=== PATIENT | male | born 1940 | race Caucasian/White ===

== ENCOUNTER → 2017-11-04 14:28 | Outpatient (CLI) | payer MEDICARE, SELFPAY ==
[2017-11-04 14:58] LABS: BUN Creatinine Ratio 23.6 (6-22); Calcium 8.8 mg/dL (8.4-10.2); Estimated Glomerular Filt Rate > 60.0 mL/min (>60); Glucose 104 mg/dL (80-110); HEMOLYSIS 32 (0-50); Potassium 4.5 mmol/L (3.4-5.1); Sodium 140 mmol/L (137-145)
== END ==
PROVIDERS: PCP Family Medicine; Visit Provider Internal Medicine Cardiovascular Disease
DX: I48.2 Chronic atrial fibrillation (principal)
CPT/HCPCS: 36415; 80048

== ENCOUNTER 2018-10-06 10:13 | Emergency (ER) | payer MEDICARE, SELFPAY ==
[2018-10-06] VITALS (10 sets, daily range): BP systolic 89–178; BP diastolic 51–103; PULSE 56–93; RESP 13–18; TEMP 36.5; O2SAT 92–98
--- NOTE | 2018-10-06 10:31 | ED.CHESTPAIN ---
HPI - Chest Pain General Chief Complaint: Chest Pain Stated Complaint: CHEST PAIN X7 DAYS Time Seen by Provider: 10/06/18 10:29 Source: patient and old records reviewed Mode of arrival: ambulatory Limitations: no limitations History of Present Illness HPI narrative: this is a 78-year-old male comes to the emergency department with complaint of chest pain. Patient states symptoms have been going on for 7-10 days. He states that he had some diarrhea for couple days after eating food and then started to notice that he was having a little bit of chest pain and pressure. Sort of the right sternal border region. He states that walking or exerting himself makes it worse. It sort of comes and goes but can't happen intermittently without any clear exacerbating factors. He denies any shortness of breath, denies any syncope. Denies any sweating or clamminess. He does feel anxious when this occurs. He denies any nausea no vomiting. He states he does not have any currently. He states he did this morning for several hours and resolved just prior to arrival. Last night he had quite a bit of heartburn and some pressure. Also felt a little bit discomfort into his shoulders. Patient states he takes medicine for hypertension, dyslipidemia and atrial fibrillation. He is on Xarelto. He has never had a heart catheterization. He follows with Dr. Osuna he has had some dental surgery and tonsils removed. He denies tobacco use, drinks [address] Trinidad is his PCP Related Data Home Medications Medication Instructions Recorded Confirmed potassium chloride 40 meq PO BID #0 10/21/16 10/06/18 garlic 1,000 mg capsule 1,000 mg PO QPC 03/21/18 10/06/18 melatonin 5 mg capsule 5 mg PO BEDTIME cap 03/21/18 10/06/18 rivaroxaban 20 mg tablet 20 mg PO QPM 03/21/18 10/06/18 Respironics DreamStation CPAP #1 ea 08/09/18 10/06/18 PreserVision AREDS 1 cap PO BID 10/06/18 10/06/18 amlodipine 5 mg PO DAILY 10/06/18 10/06/18 atorvastatin [Lipitor] 20 mg PO BEDTIME 10/06/18 10/06/18 clobetasol 1 applic TOPICAL DIRECTED 10/06/18 10/06/18 finasteride 5 mg PO DAILY 10/06/18 10/06/18 losartan [Cozaar] 100 mg PO DAILY 10/06/18 10/06/18 metoprolol succinate 100 mg PO DAILY 10/06/18 10/06/18 metronidazole 1 applic TOPICAL BEDTIME 10/06/18 10/06/18 multivitamin 1 tab PO DAILY 10/06/18 10/06/18 tamsulosin [Flomax] 0.4 mg PO QPM 10/06/18 10/06/18 Allergies Allergy/AdvReac Type Severity Reaction Status Date / Time Penicillins [PENICILLINS] Allergy Severe RASH Verified 08/15/18 18:16 Sulfa (Sulfonamide Allergy Intermediate HEART Verified 08/15/18 18:16 Antibiotics) MURMUR [SULFA (SULFONAMIDE ANTIBIOTICS)] Review of Systems Review of Systems ROS Unobtainable: All systems reviewed & are unremarkable except as noted in HPI and below Constitutional Denies chills, Denies fever(s), Denies lethargy and Denies weakness Cardiovascular Reports chest pain, Reports chest pain at rest, Reports chest pain with activity, Denies diaphoresis, Denies syncope, Denies rapid heart rate, Denies edema, Denies irregular heart rhythm, Denies lightheadedness, Reports radiating jaw, neck or arm pain, Denies palpitations, Denies dyspnea, Denies dyspnea on exertion and Denies orthopnea Respiratory Denies change in phlegm color, Denies chest congestion, Denies cough, Denies dyspnea, Denies dyspnea on exertion and Denies wheezing Gastrointestinal Gastrointestinal: Denies abdominal pain, Denies change in bowel habits, Denies diarrhea (Has resolved), Denies nausea and Denies vomiting Musculoskeletal Denies back pain Neurologic Denies syncope and Denies weakness Endocrine Denies palpitations Allergic/Immunologic Denies wheezing [facility] Medical History Obstructive sleep apnea of adult (Chronic) Primary insomnia (Chronic) Atrial fibrillation with controlled ventricular rate (Chronic) BPH (benign prostatic hyperplasia) (Chronic) Elevated PSA (Chronic) Hyperlipidemia (Chronic) Hypertension (Chronic) Fractures (Resolved) Shoulder pain (Resolved ~2009) Surgical History Hx of surgical procedure (Resolved ~2008) History of tonsillectomy Family History Father Prostate cancer Grandfather CVA (cerebral vascular accident) Grandmother CVA (cerebral vascular accident) Mother CVA (cerebral vascular accident) Grandfather Congestive heart failure Grandmother Bleeding ulcer Social History (Updated 08/09/18 @ 14:07 by ALFREDO Aldridge) marital status: details: keenan Rushing lives in [place] household members: spouse lives independently: Yes caregiver/support person: Yes (he is the 24-hour/day caregiver for his ) Smoking Status: Never smoker alcohol intake: current substance use type: does not use Family History Father Prostate cancer Grandfather CVA (cerebral vascular accident) Grandmother CVA (cerebral vascular accident) Mother CVA (cerebral vascular accident) Grandfather Congestive heart failure Grandmother Bleeding ulcer Social History marital status: details: to Kristan lives in [place] household members: spouse lives independently: Yes caregiver/support person: Yes (he is the 24-hour/day caregiver for his ) Smoking Status: Never smoker alcohol intake: current substance use type: does not use Exam Narrative Exam Narrative: GENERAL: Alert and oriented x three, HEENT: Head normocephalic, atraumatic, EOMI, pupils reactive, face symmetric, moist mucous membranes NECK: Supple, full range of motion CARDIOVASCULAR: Regular rate and rhythm without murmurs, rubs or gallops. RESPIRATORY: Breath sounds equal bilaterally, no wheezes rales or rhonchi. ABDOMEN: Soft, nontender. Normoactive bowel sounds all 4 quadrants. No guarding or rebound, rigidity, no mass : No CVA tenderness EXTREMITIES: Normal range of motion, no clubbing or edema. Neurovascularly intact NEUROLOGICAL: Cranial nerves II through XII grossly intact. Moving all extremities SKIN: Warm, dry, no petechiae, no rashes or lesions. Initial Vital Signs Initial Vital Signs: Vital Signs Temperature 97.7 F 10/06/18 10:15 Pulse Rate 93 H 10/06/18 10:15 Respiratory Rate 18 10/06/18 10:15 Blood Pressure 178/103 H 10/06/18 10:15 Pulse Oximetry 98 10/06/18 10:15 Course Orders Ordered: Discontinued Medications Aspirin (Aspirin Chew) 324 mg PO NOW ONE Stop: 10/06/18 10:30 Last Admin: 10/06/18 10:48 Dose: 324 mg Heparin Sodium (Porcine) (Heparin) 4,000 unit IV NOW ONE Stop: 10/06/18 11:28 Last Admin: 10/06/18 13:12 Dose: Not Given Sodium Chloride (Normal Saline 0.9%) 1,000 mls @ 150 mls/hr IV CONT ESTEBAN Last Infusion: 10/06/18 14:23 Dose: 150 mls/hr Admin: 10/06/18 10:48 Dose: 150 mls/hr Heparin Sodium/Dextrose (Heparin Drip) 25,000 unit in 500 mls @ 20.14 mls/hr IV CONT ESTEBAN; Protocol Last Admin: 10/06/18 13:12 Dose: Not Given Nitroglycerin (Nitro-Bid) 1 inch TOP NOW ONE Stop: 10/06/18 10:41 Last Admin: 10/06/18 10:47 Dose: 1 inch Vital Signs - 8 hr 10/06/18 12:43 10/06/18 13:00 10/06/18 13:35 Pulse Rate 88 85 Respiratory Rate 16 18 Blood Pressure [Right Arm] 93/52 L 157/79 H 154/74 H Pulse Oximetry 94 10/06/18 14:08 Pulse Rate 85 Respiratory Rate 18 Blood Pressure [Right Arm] 158/85 H Pulse Oximetry 95 MDM - Chest Pain Lab Data Attestation: I reviewed the patient's lab results. Result diagrams: 10/06/18 10:30 10/06/18 10:30 Lab Results 10/06/18 10/06/18 10/06/18 Range/Units 10:30 10:30 10:30 WBC 8.7 (4.5-11.0) X10^3/uL RBC 4.63 (4.5-5.9) X10^6/uL Hgb 14.8 (13.5-17.5) g/dL Hct 44.1 (41-53) % MCV 95.2 (80-100) fL MCH 32.0 (26-34) PG MCHC 33.6 (30-36) % RDW 14.1 (11.6-14.8) % Plt Count 119 L (150-400) X10^3/uL Neut % (Auto) 77.0 H (50-75) % Lymph % (Auto) 9.3 L (25-40) % [place] % (Auto) 12.3 (3-14) % Eos % (Auto) 0.7 L (2-4) % Baso % (Auto) 0.7 (0-2) % Neut # (Auto) 6700 (8509-3909) /uL Lymph # (Auto) 800 L (6772-7716) /uL [place] # (Auto) 1100 H (0-900) /uL Eos # (Auto) 100 (0-450) /uL Baso # (Auto) 100 (0-100) /uL PT 17.3 H (10.1-12.7) SECONDS INR 1.5 H (0.9-1.3) APTT 33 (26.4-36.2) SECONDS Sodium 138 (137-145) mmol/L Potassium 4.2 (3.4-5.1) mmol/L Chloride 103 (98-107) mmol/L Carbon Dioxide 27 (22-32) mmol/L BUN 25 H (9-20) mg/dL Creatinine 1.00 (0.66-1.25) mg/dL Estimated GFR > 60.0 (>60) mL/min BUN/Creatinine Ratio 25.0 H (6-22) Glucose 118 H (80-110) mg/dL Calcium 9.4 (8.4-10.2) mg/dL Total Bilirubin 1.1 (0.2-1.3) mg/dL AST 33 (17-59) IU/L ALT 24 (21-72) IU/L Alkaline Phosphatase 68 (38-126) U/L Total Creatine Kinase 71 (55-170) U/L CK-MB (CK-2) TNP CK-MB (CK-2) Rel Index TNP Troponin I 1.720 H* (0.01-0.034) ng/mL Total Protein 6.9 (6.3-8.2) g/dL Albumin 4.0 (3.5-5.0) g/dL Globulin 2.9 (1.7-4.1) g/dL Albumin/Globulin Ratio 1.4 (1.0-2.8) Lipase 85 (23-300) U/L Urine Dip Bedside Urine Glucose Negative Bedside Urine Bilirubin - Negative Bedside Urine Ketone - Negative Urine Specific [place] 1.015 Bedside Urine Occult Blood - Negative Bedside Urine pH 6.0 Bedside Urine Protein +/- 15 Bedside Urine Urobilinogen - Negative Bedside Urine Nitrite - Negative Bedside Urine Leukocytes - Negative Esterase Imaging Data Chest x-ray: Radiologist's impression: [address] [address] XRay Report Signed Patient: Demetrius Samuels MMR#: [id number] : 1940Acct:[id number] Age/Sex: 78 / MDate of Service: 10/06/18 Loc: ED Accession Number: [id number] Procedure: XR chest 1V Ordering Provider: Saniya Mendoza D.O. PROCEDURE: XR CHEST 1V INDICATIONS: chest pain TECHNIQUE: One view of the chest was acquired. COMPARISON: [facility], CHEST 2 VIEW, 06/15/2010, 11:37. FINDINGS: Surgical changes and devices: None. Lungs and pleura: Lungs are clear. No pleural effusions or pneumothorax. There may be mild vascular congestion. Mediastinum: Mediastinal contours appear normal. Heart size is enlarged. There is aortic atherosclerosis. Bones and chest wall: No suspicious bony lesions. Overlying soft tissues appear unremarkable. IMPRESSION: Cardiomegaly and mild vascular congestion. Dictated by: Chuck Baltazar M.D. on 10/06/2018 at 10:15 Approved by: Chuck Baltazar M.D. on 10/06/2018 at 10:17 ECG Data Attestation: I personally reviewed and interpreted this ECG as follows: Prior ECG tracings: available for review Interpretation: AFib, ST elevation in V3, V4 and V5. No depression noted except in AVR. Patient does have an RSR into 3 and AVF. Patient has a prior EKG which shows RSR but has artifact and difficult to tell in the precordial leads. MDM Narrative Medical decision making narrative: Patient's EKG has some ST elevation and initially concerning for STEMI, patient's prior EKG has motion artifact which makes it difficult to tell if this is new or similar to his prior. He is asymptomatic with no chest pain currently. Spoke with Dr. Olivas from Cardiology, he was able to view patient's older EKGs most recent from 5 months ago which shows similar ST elevation in the precordial leads. As well as the RSR in 2 3 and AVF. His recommendation is if troponin is positive patient should be shipped to [facility] with his cath lab tech for treatment. If it is negative and indeterminate without symptoms patient could stay here for stress testing. If it is indeterminate but with chest symptoms then would consider then shipping the [place]. Aspirin, nitropaste were both started. Patient's troponin is positive. Chest pain has completely resolved. After nitro paste was applied patient states that he maybe did have a tiny bit of chest pain but that had resolved after the nitro paste. Patient's other labs are normal, chest x-ray shows some cardiomegaly possibly some vascular congestion. After discussion with Dr. Olivsa patient does needs transfer. There are no beds available at [facility]. Discussed with patient and he would be more interested in [place] if he needs to be transported further. Spoke with Dr. Vasquez cardiology at [place], reviewed patient's EKG description from Dr. Olivas, lab work today and symptomatology. He agrees with aspirin and nitro paste and is happy to see the patient after he arrives in the billing him. Patient has been taking his Xarelto regularly so he defers as starting heparin at this time. I did verify with the patient that he has been taking his role to regularly. I also spoke with Dr. Costa the hospitalist who accepts for transfer. Waiting for bed assignment. Patient continues to be asymptomatic. Recheck prior to transfer, patient continues to be chest pain free. Vitals stable prior to transport. Critical Care Time Critical Care Time: Yes Total Critical Care Time: 65 Attestation: The high probability of a clinically significant, sudden or life threatening deterioration of the [cardiac] system(s) required my full and direct attention, intervention and personal management. The aggregate critical care time was [65] minutes. This time is in addition to time spent performing reported procedures but includes the following: [x] Data Review and interpretation [x] Patient assessment and monitoring of vital signs [x] Documentation [x] Medication orders and management Discharge Plan Departure Patient Disposition: [facility] Clinical Impression: Unstable angina Discharge Date/Time: 10/06/18 14:33 Interventions: ED Discharge Assessment Last Done: 10/06/18 13:51 Prescriptions: No Action rivaroxaban [Xarelto] 20 mg tablet 20 mg PO QPM RF: 0 melatonin 5 mg capsule 5 mg PO BEDTIME RF: 0 garlic 1,000 mg capsule 1,000 mg PO QPC RF: 0 potassium chloride 10 MEQ capsule, extended release 40 meq PO BID Qty: 0 RF: 0 amlodipine 5 mg tablet 5 mg PO DAILY RF: 0 metronidazole 0.75 % cream 1 applic topical BEDTIME RF: 0 clobetasol 0.05 % ointment 1 applic topical DIRECTED RF: 0 atorvastatin [Lipitor] 20 MG tablet 20 mg PO BEDTIME RF: 0 metoprolol succinate 100 MG tablet extended release 24 hr 100 mg PO DAILY RF: 0 tamsulosin [Flomax] 0.4 mg capsule 0.4 mg PO QPM RF: 0 losartan [Cozaar] 100 MG tablet 100 mg PO DAILY RF: 0 finasteride 5 mg tablet 5 mg PO DAILY RF: 0 multivitamin Tablet 1 tab PO DAILY RF: 0 PreserVision AREDS 1 cap PO BID RF: 0 Respironics DreamStation CPAP Qty: 1 RF: 0 Referrals: Demetrius Almazan MD [Primary Care Provider] -
--- NOTE | 2018-10-06 10:36 | ED_ITS ---
HPI - Chest Pain General Chief Complaint: Chest Pain Stated Complaint: CHEST PAIN X7 DAYS Time Seen by Provider: 10/06/18 10:29 Source: patient and old records reviewed Mode of arrival: ambulatory Limitations: no limitations History of Present Illness HPI narrative: this is a 78-year-old male comes to the emergency department with complaint of chest pain. Patient states symptoms have been going on for 7- 10 days. He states that he had some diarrhea for couple days after eating food and then started to notice that he was having a little bit of chest pain and pressure. Sort of the right sternal border region. He states that walking or exerting himself makes it worse. It sort of comes and goes but can't happen intermittently without any clear exacerbating factors. He denies any shortness of breath, denies any syncope. Denies any sweating or clamminess. He does feel anxious when this occurs. He denies any nausea no vomiting. He states he does not have any currently. He states he did this morning for several hours and resolved just prior to arrival. Last night he had quite a bit of heartburn and some pressure. Also felt a little bit discomfort into his shoulders. Patient states he takes medicine for hypertension, dyslipidemia and atrial fibrillation. He is on Xarelto. He has never had a heart catheterization. He follows with Dr. Osuna he has had some dental surgery and tonsils removed. He denies tobacco use, drinks [address] Trinidad is his PCP Related Data Home Medications Medication Instructions Recorded Confirmed potassium chloride 40 meq PO BID #0 10/21/16 10/06/18 garlic 1,000 mg capsule 1,000 mg PO QPC 03/21/18 10/06/18 melatonin 5 mg capsule 5 mg PO BEDTIME cap 03/21/18 10/06/18 rivaroxaban 20 mg tablet 20 mg PO QPM 03/21/18 10/06/18 Respironics DreamStation CPAP #1 ea 08/09/18 10/06/18 PreserVision AREDS 1 cap PO BID 10/06/18 10/06/18 amlodipine 5 mg PO DAILY 10/06/18 10/06/18 atorvastatin [Lipitor] 20 mg PO BEDTIME 10/06/18 10/06/18 clobetasol 1 applic TOPICAL DIRECTED 10/06/18 10/06/18 finasteride 5 mg PO DAILY 10/06/18 10/06/18 losartan [Cozaar] 100 mg PO DAILY 10/06/18 10/06/18 metoprolol succinate 100 mg PO DAILY 10/06/18 10/06/18 metronidazole 1 applic TOPICAL BEDTIME 10/06/18 10/06/18 multivitamin 1 tab PO DAILY 10/06/18 10/06/18 tamsulosin [Flomax] 0.4 mg PO QPM 10/06/18 10/06/18 Allergies Allergy/AdvReac Type Severity Reaction Status Date / Time Penicillins [PENICILLINS] Allergy Severe RASH Verified 08/15/18 18:16 Sulfa (Sulfonamide Allergy Intermediate HEART Verified 08/15/18 18:16 Antibiotics) MURMUR [SULFA (SULFONAMIDE ANTIBIOTICS)] Review of Systems Review of Systems ROS Unobtainable: All systems reviewed & are unremarkable except as noted in HPI and below Constitutional Denies chills, Denies fever(s), Denies lethargy and Denies weakness Cardiovascular Reports chest pain, Reports chest pain at rest, Reports chest pain with activity, Denies diaphoresis, Denies syncope, Denies rapid heart rate, Denies edema, Denies irregular heart rhythm, Denies lightheadedness, Reports radiating jaw, neck or arm pain, Denies palpitations, Denies dyspnea, Denies dyspnea on exertion and Denies orthopnea Respiratory Denies change in phlegm color, Denies chest congestion, Denies cough, Denies dyspnea, Denies dyspnea on exertion and Denies wheezing Gastrointestinal Gastrointestinal: Denies abdominal pain, Denies change in bowel habits, Denies diarrhea (Has resolved), Denies nausea and Denies vomiting Musculoskeletal Denies back pain Neurologic Denies syncope and Denies weakness Endocrine Denies palpitations Allergic/Immunologic Denies wheezing [facility] Medical History Obstructive sleep apnea of adult (Chronic) Primary insomnia (Chronic) Atrial fibrillation with controlled ventricular rate (Chronic) BPH (benign prostatic hyperplasia) (Chronic) Elevated PSA (Chronic) Hyperlipidemia (Chronic) Hypertension (Chronic) Fractures (Resolved) Shoulder pain (Resolved ~2009) Surgical History Hx of surgical procedure (Resolved ~2008) History of tonsillectomy Family History Father Prostate cancer Grandfather CVA (cerebral vascular accident) Grandmother CVA (cerebral vascular accident) Mother CVA (cerebral vascular accident) Grandfather Congestive heart failure Grandmother Bleeding ulcer Social History (Updated 08/09/18 @ 14:07 by ALFREDO Aldridge) marital status: details: keenan Rushing lives in [place] household members: spouse lives independently: Yes caregiver/support person: Yes (he is the 24-hour/day caregiver for his ) Smoking Status: Never smoker alcohol intake: current substance use type: does not use Family History Father Prostate cancer Grandfather CVA (cerebral vascular accident) Grandmother CVA (cerebral vascular accident) Mother CVA (cerebral vascular accident) Grandfather Congestive heart failure Grandmother Bleeding ulcer Social History marital status: details: to Kristan lives in [place] household members: spouse lives independently: Yes caregiver/support person: Yes (he is the 24-hour/day caregiver for his ) Smoking Status: Never smoker alcohol intake: current substance use type: does not use Exam Narrative Exam Narrative: GENERAL: Alert and oriented x three, HEENT: Head normocephalic, atraumatic, EOMI, pupils reactive, face symmetric, moist mucous membranes NECK: Supple, full range of motion CARDIOVASCULAR: Regular rate and rhythm without murmurs, rubs or gallops. RESPIRATORY: Breath sounds equal bilaterally, no wheezes rales or rhonchi. ABDOMEN: Soft, nontender. Normoactive bowel sounds all 4 quadrants. No guarding or rebound, rigidity, no mass : No CVA tenderness EXTREMITIES: Normal range of motion, no clubbing or edema. Neurovascularly intact NEUROLOGICAL: Cranial nerves II through XII grossly intact. Moving all extremities SKIN: Warm, dry, no petechiae, no rashes or lesions. Initial Vital Signs Initial Vital Signs: Vital Signs Temperature 97.7 F 10/06/18 10:15 Pulse Rate 93 H 10/06/18 10:15 Respiratory Rate 18 10/06/18 10:15 Blood Pressure 178/103 H 10/06/18 10:15 Pulse Oximetry 98 10/06/18 10:15 Course Orders Ordered: Discontinued Medications Aspirin (Aspirin Chew) 324 mg PO NOW ONE Stop: 10/06/18 10:30 Last Admin: 10/06/18 10:48 Dose: 324 mg Heparin Sodium (Porcine) (Heparin) 4,000 unit IV NOW ONE Stop: 10/06/18 11:28 Last Admin: 10/06/18 13:12 Dose: Not Given Sodium Chloride (Normal Saline 0.9%) 1,000 mls @ 150 mls/hr IV CONT ESTEBAN Last Infusion: 10/06/18 14:23 Dose: 150 mls/hr Admin: 10/06/18 10:48 Dose: 150 mls/hr Heparin Sodium/Dextrose (Heparin Drip) 25,000 unit in 500 mls @ 20.14 mls/hr IV CONT ESTEBAN; Protocol Last Admin: 10/06/18 13:12 Dose: Not Given Nitroglycerin (Nitro-Bid) 1 inch TOP NOW ONE Stop: 10/06/18 10:41 Last Admin: 10/06/18 10:47 Dose: 1 inch Vital Signs - 8 hr 10/06/18 12:43 10/06/18 13:00 10/06/18 13:35 Pulse Rate 88 85 Respiratory Rate 16 18 Blood Pressure [Right Arm] 93/52 L 157/79 H 154/74 H Pulse Oximetry 94 10/06/18 14:08 Pulse Rate 85 Respiratory Rate 18 Blood Pressure [Right Arm] 158/85 H Pulse Oximetry 95 MDM - Chest Pain Lab Data Attestation: I reviewed the patient's lab results. Result diagrams: 10/06/18 10:30 10/06/18 10:30 Lab Results 10/06/18 10/06/18 10/06/18 Range/Units 10:30 10:30 10:30 WBC 8.7 (4.5-11.0) X10^3/uL RBC 4.63 (4.5-5.9) X10^6/uL Hgb 14.8 (13.5-17.5) g/dL Hct 44.1 (41-53) % MCV 95.2 (80-100) fL MCH 32.0 (26-34) PG MCHC 33.6 (30-36) % RDW 14.1 (11.6-14.8) % Plt Count 119 L (150-400) X10^3/uL Neut % (Auto) 77.0 H (50-75) % Lymph % (Auto) 9.3 L (25-40) % [place] % (Auto) 12.3 (3-14) % Eos % (Auto) 0.7 L (2-4) % Baso % (Auto) 0.7 (0-2) % Neut # (Auto) 6700 (4486-2152) /uL Lymph # (Auto) 800 L (4659-1020) /uL [place] # (Auto) 1100 H (0-900) /uL Eos # (Auto) 100 (0-450) /uL Baso # (Auto) 100 (0-100) /uL PT 17.3 H (10.1-12.7) SECONDS INR 1.5 H (0.9-1.3) APTT 33 (26.4-36.2) SECONDS Sodium 138 (137-145) mmol/L Potassium 4.2 (3.4-5.1) mmol/L Chloride 103 (98-107) mmol/L Carbon Dioxide 27 (22-32) mmol/L BUN 25 H (9-20) mg/dL Creatinine 1.00 (0.66-1.25) mg/dL Estimated GFR > 60.0 (>60) mL/min BUN/Creatinine Ratio 25.0 H (6-22) Glucose 118 H (80-110) mg/dL Calcium 9.4 (8.4-10.2) mg/dL Total Bilirubin 1.1 (0.2-1.3) mg/dL AST 33 (17-59) IU/L ALT 24 (21-72) IU/L Alkaline Phosphatase 68 (38-126) U/L Total Creatine Kinase 71 (55-170) U/L CK-MB (CK-2) TNP CK-MB (CK-2) Rel Index TNP Troponin I 1.720 H* (0.01-0.034) ng/mL Total Protein 6.9 (6.3-8.2) g/dL Albumin 4.0 (3.5-5.0) g/dL Globulin 2.9 (1.7-4.1) g/dL Albumin/Globulin Ratio 1.4 (1.0-2.8) Lipase 85 (23-300) U/L Urine Dip Bedside Urine Glucose Negative Bedside Urine Bilirubin - Negative Bedside Urine Ketone - Negative Urine Specific [place] 1.015 Bedside Urine Occult Blood - Negative Bedside Urine pH 6.0 Bedside Urine Protein +/- 15 Bedside Urine Urobilinogen - Negative Bedside Urine Nitrite - Negative Bedside Urine Leukocytes - Negative Esterase Imaging Data Chest x-ray: Radiologist's impression: [address] [address] XRay Report Signed Patient: Demetrius Samuels MMR#: [id number] : 1940Acct:[id number] Age/Sex: 78 / MDate of Service: 10/06/18 Loc: ED Accession Number: [id number] Procedure: XR chest 1V Ordering Provider: Saniya Mendoza D.O. PROCEDURE: XR CHEST 1V INDICATIONS: chest pain TECHNIQUE: One view of the chest was acquired. COMPARISON: [facility], CHEST 2 VIEW, 06/15/2010, 11:37. FINDINGS: Surgical changes and devices: None. Lungs and pleura: Lungs are clear. No pleural effusions or pneumothorax. There may be mild vascular congestion. Mediastinum: Mediastinal contours appear normal. Heart size is enlarged. There is aortic atherosclerosis. Bones and chest wall: No suspicious bony lesions. Overlying soft tissues appear unremarkable. IMPRESSION: Cardiomegaly and mild vascular congestion. Dictated by: Chuck Baltazar M.D. on 10/06/2018 at 10:15 Approved by: Chuck Baltazar M.D. on 10/06/2018 at 10:17 ECG Data Attestation: I personally reviewed and interpreted this ECG as follows: Prior ECG tracings: available for review Interpretation: AFib, ST elevation in V3, V4 and V5. No depression noted except in AVR. Patient does have an RSR into 3 and AVF. Patient has a prior EKG which shows RSR but has artifact and difficult to tell in the precordial leads. MDM Narrative Medical decision making narrative: Patient's EKG has some ST elevation and in itially concerning for STEMI, patient's prior EKG has motion artifact which makes it difficult to tell if this is new or similar to his prior. He is asymptomatic with no chest pain currently. Spoke with Dr. Olivas from Cardiology, he was able to view patient's older EKGs most recent from 5 months ago which shows similar ST elevation in the precordial leads. As well as the RSR in 2 3 and AVF. His recommendation is if troponin is positive patient should be shipped to [facility] with his digital performance analyst for treatment. If it is negative and indeterminate without symptoms patient could stay here for stress testing. If it is indeterminate but with chest symptoms then would consider then shipping the [facility]. Aspirin, nitropaste were both started. Patient's troponin is positive. Chest pain has completely resolved. After nitro paste was applied patient states that he maybe did have a tiny bit of chest pain but that had resolved after the nitro paste. Patient's other labs are normal, chest x-ray shows some cardiomegaly possibly some vascular congestion. After discussion with Dr. Olivas patient does needs transfer. There are no beds available at [facility]. Discussed with patient and he would be more interested in [facility] if he needs to be transported further. Spoke with Dr. Vasquez cardiology at [facility], reviewed patient's EKG description from Dr. Olivas, lab work today and symptomatology. He agrees with aspirin and nitro paste and is happy to see the patient after he arrives in the billing him. Patient has been taking his Xarelto regularly so he defers as sta rting heparin at this time. I did verify with the patient that he has been taking his role to regularly. I also spoke with Dr. Costa the hospitalist who accepts for transfer. Waiting for bed assignment. Patient continues to be asymptomatic. Recheck prior to transfer, patient continues to be chest pain free. Vitals stable prior to transport. Critical Care Time Critical Care Time: Yes Total Critical Care Time: 65 Attestation: The high probability of a clinically significant, sudden or life threatening deterioration of the [cardiac] system(s) required my full and direct attention, intervention and personal management. The aggregate critical care time was [65] minutes. This time is in addition to time spent performing reported procedures but includes the following: [x] Data Review and interpretation [x] Patient assessment and monitoring of vital signs [x] Documentation [x] Medication orders and management Discharge Plan Departure Patient Disposition: [facility] Clinical Impression: Unstable angina Discharge Date/Time: 10/06/18 14:33 Interventions: ED Discharge Assessment Last Done: 10/06/18 13:51 Prescriptions: No Action rivaroxaban [Xarelto] 20 mg tablet 20 mg PO QPM RF: 0 melatonin 5 mg capsule 5 mg PO BEDTIME RF: 0 garlic 1,000 mg capsule 1,000 mg PO QPC RF: 0 potassium chloride 10 MEQ capsule, extended release 40 meq PO BID Qty: 0 RF: 0 amlodipine 5 mg tablet 5 mg PO DAILY RF: 0 metronidazole 0.75 % cream 1 applic topical BEDTIME RF: 0 clobetasol 0.05 % ointment 1 applic topical DIRECTED RF: 0 atorvastatin [Lipitor] 20 MG tablet 20 mg PO BEDTIME RF: 0 metoprolol succinate 100 MG tablet extended release 24 hr 100 mg PO DAILY RF: 0 tamsulosin [Flomax] 0.4 mg capsule 0.4 mg PO QPM RF: 0 losartan [Cozaar] 100 MG tablet 100 mg PO DAILY RF: 0 finasteride 5 mg tablet 5 mg PO DAILY RF: 0 multivitamin Tablet 1 tab PO DAILY RF: 0 PreserVision AREDS 1 cap PO BID RF: 0 Respironics DreamStation CPAP Qty: 1 RF: 0 Referrals: Demetrius Almazan MD [Primary Care Provider] -
[2018-10-06 10:40] LABS: Add Manual Diff / Slide Review NO; Basophils Absolute Auto 100 /uL (0-100); Basophils Percent Auto 0.7 % (0-2); Eosinophils Absolute Auto 100 /uL (0-450); Eosinophils Percent Auto 0.7 % (2-4); Hematocrit 44.1 % (41-53); Hemoglobin 14.8 g/dL (13.5-17.5); Lymphocytes Absolute Auto 800 /uL (1100-4500); Lymphocytes Percent Auto 9.3 % (25-40); Mean Corpuscular HGB Conc 33.6 % (30-36); Mean Corpuscular Volume 95.2 fL (80-100); Monocytes Absolute Auto 1100 /uL (0-900); Monocytes Percent Auto 12.3 % (3-14); Neutrophils Absolute Auto 6700 /uL (1500-7000); Red Blood Cell Count 4.63 X10^6/uL (4.5-5.9); Red Cell Distribution Width 14.1 % (11.6-14.8); White Blood Cell Count 8.7 X10^3/uL (4.5-11.0)
[2018-10-06 10:45] LABS: INR 1.5 (0.9-1.3); Prothrombin Time 17.3 SECONDS (10.1-12.7)
[2018-10-06] MEDS: NITROGLYCERIN OINT 1 INCH/GM OINT...G. TOP (10:47)
[2018-10-06 10:48] LABS: PTT Partial Thromboplastin Tim 33 SECONDS (26.4-36.2)
[2018-10-06] MEDS: ASPIRIN 81 MG TAB 324 MG PO (10:48)
[2018-10-06] MEDS: SODIUM CHLORIDE 0.9% 1,000 ML 150 ML IV (10:48)
[2018-10-06 10:49] LABS: Alanine Aminotransferase 24 IU/L (21-72); Albumin Globulin Ratio 1.4 (1.0-2.8); Alkaline Phosphatase 68 U/L (38-126); Aspartate Aminotransferase 33 IU/L (17-59); Bilirubin Total 1.1 mg/dL (0.2-1.3); Blood Urea Nitrogen 25 mg/dL (9-20); Calcium 9.4 mg/dL (8.4-10.2); Carbon Dioxide 27 mmol/L (22-32); Chloride 103 mmol/L (98-107); Creatine Kinase 71 U/L (55-170); Estimated Glomerular Filt Rate > 60.0 mL/min (>60); Globulin 2.9 g/dL (1.7-4.1); Glucose 118 mg/dL (80-110); HEMOLYSIS < 15 (0-50); Lipase 85 U/L (23-300); Potassium 4.2 mmol/L (3.4-5.1); Sodium 138 mmol/L (137-145); Total Protein 6.9 g/dL (6.3-8.2)
[2018-10-06 11:09] LABS: Platelet Count 119 X10^3/uL (150-400)
--- NOTE | 2018-10-06 11:22 | PC.NURSE ---
Critical Trop 1.720 called from lab reported to Provider Reji
--- NOTE | 2018-10-06 11:56 | PC.NURSE ---
After consultation with cardiology cancelled Heparin.
--- NOTE | 2018-10-06 12:49 | PC.NURSE ---
John was hypotensive in field received 50cc fluid upon arrival BP had come up fluids paused and patient started trending down in BP. Patient IVF restarted per Reji.
--- NOTE | 2018-10-06 14:11 | ED_ITS ---
HPI - Chest Pain General Chief Complaint: Chest Pain Stated Complaint: CHEST PAIN X7 DAYS Time Seen by Provider: 10/06/18 10:29 Source: patient and old records reviewed Mode of arrival: ambulatory Limitations: no limitations Related Data Home Medications Medication Instructions Recorded Confirmed potassium chloride 40 meq PO BID #0 10/21/16 10/06/18 garlic 1,000 mg capsule 1,000 mg PO QPC 03/21/18 10/06/18 melatonin 5 mg capsule 5 mg PO BEDTIME cap 03/21/18 10/06/18 rivaroxaban 20 mg tablet 20 mg PO QPM 03/21/18 10/06/18 Respironics DreamStation CPAP #1 ea 08/09/18 10/06/18 PreserVision AREDS 1 cap PO BID 10/06/18 10/06/18 amlodipine 5 mg PO DAILY 10/06/18 10/06/18 atorvastatin [Lipitor] 20 mg PO BEDTIME 10/06/18 10/06/18 clobetasol 1 applic TOPICAL DIRECTED 10/06/18 10/06/18 finasteride 5 mg PO DAILY 10/06/18 10/06/18 losartan [Cozaar] 100 mg PO DAILY 10/06/18 10/06/18 metoprolol succinate 100 mg PO DAILY 10/06/18 10/06/18 metronidazole 1 applic TOPICAL BEDTIME 10/06/18 10/06/18 multivitamin 1 tab PO DAILY 10/06/18 10/06/18 tamsulosin [Flomax] 0.4 mg PO QPM 10/06/18 10/06/18 Allergies Allergy/AdvReac Type Severity Reaction Status Date / Time Penicillins [PENICILLINS] Allergy Severe RASH Verified 08/15/18 18:16 Sulfa (Sulfonamide Allergy Intermediate HEART Verified 08/15/18 18:16 Antibiotics) MURMUR [SULFA (SULFONAMIDE ANTIBIOTICS)] Review of Systems Constitutional Denies weakness Cardiovascular Denies syncope Neurologic Denies syncope and Denies weakness [facility] Medical History Obstructive sleep apnea of adult (Chronic) Primary insomnia (Chronic) Atrial fibrillation with controlled ventricular rate (Chronic) BPH (benign prostatic hyperplasia) (Chronic) Elevated PSA (Chronic) Hyperlipidemia (Chronic) Hypertension (Chronic) Fractures (Resolved) Shoulder pain (Resolved ~2009) Surgical History Hx of surgical procedure (Resolved ~2008) History of tonsillectomy Family History Father Prostate cancer Grandfather CVA (cerebral vascular accident) Grandmother CVA (cerebral vascular accident) Mother CVA (cerebral vascular accident) Grandfather Congestive heart failure Grandmother Bleeding ulcer Social History (Updated 08/09/18 @ 14:07 by ALFREDO Aldridge) marital status: details: keenan Rushing lives in [place] household members: spouse lives independently: Yes caregiver/support person: Yes (he is the 24-hour/day caregiver for his ) Smoking Status: Never smoker alcohol intake: current substance use type: does not use Family History Father Prostate cancer Grandfather CVA (cerebral vascular accident) Grandmother CVA (cerebral vascular accident) Mother CVA (cerebral vascular accident) Grandfather Congestive heart failure Grandmother Bleeding ulcer Social History marital status: details: keenan Rushing lives in [place] household members: spouse lives independently: Yes caregiver/support person: Yes (he is the 24-hour/day caregiver for his ) Smoking Status: Never smoker alcohol intake: current substance use type: does not use Exam Initial Vital Signs Initial Vital Signs: Vital Signs Temperature 97.7 F 10/06/18 10:15 Pulse Rate 93 H 10/06/18 10:15 Respiratory Rate 18 10/06/18 10:15 Blood Pressure 178/103 H 10/06/18 10:15 Pulse Oximetry 98 10/06/18 10:15 Scores PECARN GCS less than or equal to 14, palpable skull fracture or signs of AMS: No LOC, or vomiting, or severe mechanism of injury, or severe headache: Yes Multiple findings or worsening symptoms: No Course Orders Ordered: ED Orders 10/06/18 10:18 EKG-12 Lead Stat 10/06/18 10:30 XR chest 1V Stat Complete Blood Count AUTO DIFF Stat Comprehensive Metabolic Panel Stat Lipase Stat Partial Thromboplastin Time Stat Prothrombin Time INR Stat Troponin & CK Cardiac Panel Stat Sodium Chloride (Normal Saline 0.9%) 1,000 mls @ 150 mls/hr IV CONT ESTEBAN Last Admin: 10/06/18 10:48 Dose: 150 mls/hr Heparin Sodium/Dextrose (Heparin Drip) 25,000 unit in 500 mls @ 20.14 mls/hr IV CONT ESTEBAN; Protocol Last Admin: 10/06/18 13:12 Dose: Not Given Discontinued Medications Aspirin (Aspirin Chew) 324 mg PO NOW ONE Stop: 10/06/18 10:30 Last Admin: 10/06/18 10:48 Dose: 324 mg Heparin Sodium (Porcine) (Heparin) 4,000 unit IV NOW ONE Stop: 10/06/18 11:28 Last Admin: 10/06/18 13:12 Dose: Not Given Nitroglycerin (Nitro-Bid) 1 inch TOP NOW ONE Stop: 10/06/18 10:41 Last Admin: 10/06/18 10:47 Dose: 1 inch Vital Signs - 8 hr 10/06/18 10:15 10/06/18 10:47 10/06/18 11:01 Temperature 97.7 F Pulse Rate 93 H 87 85 Respiratory Rate 18 15 Blood Pressure 178/103 H 172/81 H Blood Pressure [Right Arm] 175/78 H Pulse Oximetry 98 92 10/06/18 11:26 10/06/18 12:15 10/06/18 12:24 Temperature Pulse Rate 91 H 56 L 90 Respiratory Rate 18 13 17 Blood Pressure Blood Pressure [Right Arm] 162/96 H 89/51 L 115/96 H Pulse Oximetry 94 97 94 10/06/18 12:43 10/06/18 13:00 10/06/18 13:35 Temperature Pulse Rate 88 85 Respiratory Rate 16 18 Blood Pressure Blood Pressure [Right Arm] 93/52 L 157/79 H 154/74 H Pulse Oximetry 94 MDM - Chest Pain Lab Data Result diagrams: 10/06/18 10:30 10/06/18 10:30 Lab Results 10/06/18 10/06/18 10/06/18 Range/Units 10:30 10:30 10:30 WBC 8.7 (4.5-11.0) X10^3/uL RBC 4.63 (4.5-5.9) X10^6/uL Hgb 14.8 (13.5-17.5) g/dL Hct 44.1 (41-53) % MCV 95.2 (80-100) fL MCH 32.0 (26-34) PG MCHC 33.6 (30-36) % RDW 14.1 (11.6-14.8) % Plt Count 119 L (150-400) X10^3/uL Neut % (Auto) 77.0 H (50-75) % Lymph % (Auto) 9.3 L (25-40) % [place] % (Auto) 12.3 (3-14) % Eos % (Auto) 0.7 L (2-4) % Baso % (Auto) 0.7 (0-2) % Neut # (Auto) 6700 (1468-2466) /uL Lymph # (Auto) 800 L (0661-0818) /uL [place] # (Auto) 1100 H (0-900) /uL Eos # (Auto) 100 (0-450) /uL Baso # (Auto) 100 (0-100) /uL PT 17.3 H (10.1-12.7) SECONDS INR 1.5 H (0.9-1.3) APTT 33 (26.4-36.2) SECONDS Sodium 138 (137-145) mmol/L Potassium 4.2 (3.4-5.1) mmol/L Chloride 103 (98-107) mmol/L Carbon Dioxide 27 (22-32) mmol/L BUN 25 H (9-20) mg/dL Creatinine 1.00 (0.66-1.25) mg/dL Estimated GFR > 60.0 (>60) mL/min BUN/Creatinine Ratio 25.0 H (6-22) Glucose 118 H (80-110) mg/dL Calcium 9.4 (8.4-10.2) mg/dL Total Bilirubin 1.1 (0.2-1.3) mg/dL AST 33 (17-59) IU/L ALT 24 (21-72) IU/L Alkaline Phosphatase 68 (38-126) U/L Total Creatine Kinase 71 (55-170) U/L CK-MB (CK-2) TNP CK-MB (CK-2) Rel Index TNP Troponin I 1.720 H* (0.01-0.034) ng/mL Total Protein 6.9 (6.3-8.2) g/dL Albumin 4.0 (3.5-5.0) g/dL Globulin 2.9 (1.7-4.1) g/dL Albumin/Globulin Ratio 1.4 (1.0-2.8) Lipase 85 (23-300) U/L Urine Dip Bedside Urine Glucose Negative Bedside Urine Bilirubin - Negative Bedside Urine Ketone - Negative Urine Specific [place] 1.015 Bedside Urine Occult Blood - Negative Bedside Urine pH 6.0 Bedside Urine Protein +/- 15 Bedside Urine Urobilinogen - Negative Bedside Urine Nitrite - Negative Bedside Urine Leukocytes - Negative Esterase Discharge Plan Departure Patient Disposition: [facility] Clinical Impression: Unstable angina Interventions: ED Discharge Assessment Last Done: 10/06/18 13:51 Prescriptions: No Action rivaroxaban [Xarelto] 20 mg tablet 20 mg PO QPM RF: 0 melatonin 5 mg capsule 5 mg PO BEDTIME RF: 0 garlic 1,000 mg capsule 1,000 mg PO QPC RF: 0 potassium chloride 10 MEQ capsule, extended release 40 meq PO BID Qty: 0 RF: 0 amlodipine 5 mg tablet 5 mg PO DAILY RF: 0 metronidazole 0.75 % cream 1 applic topical BEDTIME RF: 0 clobetasol 0.05 % ointment 1 applic topical DIRECTED RF: 0 atorvastatin [Lipitor] 20 MG tablet 20 mg PO BEDTIME RF: 0 metoprolol succinate 100 MG tablet extended release 24 hr 100 mg PO DAILY RF: 0 tamsulosin [Flomax] 0.4 mg capsule 0.4 mg PO QPM RF: 0 losartan [Cozaar] 100 MG tablet 100 mg PO DAILY RF: 0 finasteride 5 mg tablet 5 mg PO DAILY RF: 0 multivitamin Tablet 1 tab PO DAILY RF: 0 PreserVision AREDS 1 cap PO BID RF: 0 Respironics DreamStation CPAP Qty: 1 RF: 0 Referrals: Demetrius Almazan MD [Primary Care Provider] -
== END 2018-10-06 14:33 | disposition short-term general hospital (02) ==
PROVIDERS: Emergency Provider Emergency Medicine; PCP Student in an Organized Health Care Education/Training Program
DX: I20.0 Unstable angina (principal); R19.7 Diarrhea, unspecified
CPT/HCPCS: 36591; 71045; 80053; 81003; 82550; 83690; 84484; 85025; 85610; 85730; 93005; 93010; 96360; 96361; 99285; J1644

== ENCOUNTER → 2018-10-23 10:14 | Outpatient (CLI) | payer MEDICARE, SELFPAY ==
[2018-10-23 11:22] LABS: Blood Urea Nitrogen 27 mg/dL (9-20); Calcium 8.9 mg/dL (8.4-10.2); Carbon Dioxide 26 mmol/L (22-32); Chloride 104 mmol/L (98-107); Estimated Glomerular Filt Rate > 60.0 mL/min (>60); Glucose 108 mg/dL (80-110); HEMOLYSIS < 15 (0-50); Potassium 3.9 mmol/L (3.4-5.1); Sodium 138 mmol/L (137-145)
== END ==
PROVIDERS: PCP Student in an Organized Health Care Education/Training Program; Visit Provider Internal Medicine Cardiovascular Disease
DX: I10 Essential (primary) hypertension (principal)
CPT/HCPCS: 36415; 80048

== ENCOUNTER → 2018-11-08 10:29 | Outpatient (CLI) | payer MEDICARE, SELFPAY ==
--- NOTE | 2018-11-08 | DI.RAD.S_ITS ---
PROCEDURE: XR CHEST 1V INDICATIONS: Pleural effusion TECHNIQUE: 2 left lateral decubitus views of the chest was acquired. COMPARISON: [facility], CR, XR CHEST 1V, 10/06/2018, 10:35. FINDINGS: Surgical changes and devices: There are interval postsurgical changes within the mediastinum. Lungs and pleura: There is a layering moderate-sized left pleural effusion with associated outlet opacities in the left lung consistent with compressive atelectasis or consolidation. Right lung appears clear. Mediastinum: Heart size is normal. Bones and chest wall: No suspicious bony lesions. Overlying soft tissues appear unremarkable. IMPRESSION: 1. Moderate-sized layering left pleural effusion with associated compressive atelectasis or consolidation. Dictated by: Beau Bartholomew M.D. on 11/08/2018 at 12:04 Approved by: Beau Bartholomew M.D. on 11/08/2018 at 12:05
[2018-11-08 12:37] LABS: BUN Creatinine Ratio 18.9 (6-22); Blood Urea Nitrogen 17 mg/dL (9-20); Calcium 8.7 mg/dL (8.4-10.2); Carbon Dioxide 28 mmol/L (22-32); Chloride 102 mmol/L (98-107); Estimated Glomerular Filt Rate > 60.0 mL/min (>60); Glucose 104 mg/dL (80-110); HEMOLYSIS < 15 (0-50); Potassium 3.6 mmol/L (3.4-5.1); Sodium 136 mmol/L (137-145)
== END ==
PROVIDERS: Family Provider Student in an Organized Health Care Education/Training Program; PCP Student in an Organized Health Care Education/Training Program; Visit Provider Internal Medicine Cardiovascular Disease
DX: J90 Pleural effusion, not elsewhere classified (principal); I25.5 Ischemic cardiomyopathy
CPT/HCPCS: 36415; 71045; 80048

== ENCOUNTER → 2018-12-20 14:17 | Outpatient (CLI) | payer MEDICARE, SELFPAY ==
--- NOTE | 2018-12-20 14:19 | DI.RAD.S_ITS ---
PROCEDURE: XR CHEST 2V INDICATIONS: SOB, s/p CABG, s/p thoracentesis, R/o pneumothorax, effusion TECHNIQUE: 2 views of the chest were acquired. COMPARISON: [facility], , CHEST 2 VIEW, 06/15/2010, 11:37. [facility], [place], MYOCARDIAL PERFUSION, 07/22/2010, 14:13. [facility], , XR CHEST 1V, 11/08/2018, 11:03. [facility], , XR CHEST 1V, 10/06/2018, 10:35. FINDINGS: Surgical changes and devices: None. Lungs and pleura: Lungs are mildly edematous. No right-sided pleural effusions, mild to moderate subpulmonic left-sided pleural effusion, no pneumothorax. Mediastinum: Mediastinal contours are normal. Heart size is mildly enlarged. Bones and chest wall: No suspicious bony abnormalities. Soft tissues appear unremarkable. IMPRESSION: Mild acute exacerbation of chronic CHF pattern appears present with a mild to moderate subpulmonic left pleural effusion previously present. Chronic mild cardiomegaly, sternotomy wires, presumed prior CABG. A set of sternotomy wires are now present, not previously present in mid September of this year. 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 Dictated by: Elie Solares M.D. on 12/20/2018 at 15:34 Approved by: Elie Solares M.D. on 12/20/2018 at 15:37
== END ==
PROVIDERS: Family Provider Student in an Organized Health Care Education/Training Program; PCP Student in an Organized Health Care Education/Training Program; Visit Provider Student in an Organized Health Care Education/Training Program
DX: R06.02 Shortness of breath (principal); I50.9 Heart failure, unspecified; I51.7 Cardiomegaly; Z95.1 Presence of aortocoronary bypass graft
CPT/HCPCS: 71046

== ENCOUNTER → 2019-01-01 08:58 | Outpatient (CLI) | payer MEDICARE, SELFPAY ==
--- NOTE | 2019-01-01 | DI.ECHO.S_ITS ---
[place] +---------+ Hospital +---------+ : : [address] [address] : : : : [phone] : : : : Phone: [phone]+ Echocardiogram Report + + :Name: CHAPIN MASSEY Study Date: 01/01/2019 Height: 70 in : :[facility] Weight: 196 lb : : Gender: Male BSA: 2.1 m2 : :: 1940 Age: 78 yrs BP: 188/86 mmHg: :Reason For Study: Aortic, Ascending Aneurysm : : Performed By: Izyz Jones : :Referring: FABIO VARGAS : + + Interpretation Summary The left ventricle is normal in size. Left ventricular ejection fraction is estimated to be 50 +/- 5%. There has been no significant change since the previous study. The right ventricle is mildly dilated. The right ventricular systolic function is normal. There is mild tricuspid regurgitation. Compared to the prior echo exam, there has been no change in TR severity. The right ventricular systolic pressure is estimated to be at least 35 mmHg based on an estimated right atrial pressure of 8 mm Hg. Compared to the prior echo exam, there has been an increase in the severity of pulmonary hypertension. The ascending aorta is moderately enlarged. 4.2 cm in diameter. In January 2017 it was 4.2 cm as well. There is a moderately large left-sided pleural effusion. Patient had a recent coronary artery bypass surgery in September 2018 and has had multiple thoracentesis for left pleural effusion. Last thoracentesis he had on November 24, 2018 at [facility]. I called patient and discussed. At present he is not much symptomatic. He will contact CT surgery at [facility] tomorrow. Procedure: A two-dimensional transthoracic echocardiogram with color flow and Doppler was performed. The study quality was technically adequate. Comparison is made with the echocardiogram of 03-31-17. The patient was in atrial fibrillation with heart rates between 54-63 bpm during the exam. Left Ventricle: The left ventricle is normal in size. There is normal left ventricular wall thickness. A false chord is noted (normal variant). Left ventricular ejection fraction is estimated to be 50 +/- 5%. There has been no significant change since the previous study. Septal motion is consistent with conduction abnormality. E/E' med: 33.6. Right Ventricle: The right ventricle is mildly dilated. The right ventricular systolic function is normal. Atria: The left atrium is severely dilated. The left atrium has remained unchanged in size since the prior echo exam. The right atrium is severely dilated. The interatrial septum is intact with no evidence for an atrial septal defect. Mitral Valve: The mitral valve leaflets appear mildly thickened, but open well. There is mild mitral annular calcification. The mitral valve chordae are thickened and/or calcified. There is mild mitral regurgitation. Compared to the prior echo study, there has been no change in the severity of mitral regurgitation. Aortic Valve: The aortic valve is trileaflet. The aortic valve opens well. There is no aortic valve stenosis. There is mild aortic regurgitation. Tricuspid Valve: The tricuspid valve leaflets are thin and pliable. There is mild tricuspid regurgitation. The right ventricular systolic pressure is estimated to be at least 35 mmHg based on an estimated right atrial pressure of 8 mm Hg. Compared to the prior echo exam, there has been no change in TR severity. Compared to the prior echo exam, there has been an increase in the severity of pulmonary hypertension. Pulmonic Valve: The pulmonic valve is not well seen, but is grossly normal. There is mild pulmonic regurgitation. Great Vessels: The aortic root is normal size. There is aortic root sclerosis/calcification. The ascending aorta is moderately enlarged. The aortic arch is mildly enlarged. Mild atherosclerotic plaque(s) in the aortic arch. The IVC is dilated (diameter is greater than 2.1 cm) yet it collapses greater than 50% with a sniff. This suggests a right atrial pressure of 8 mm Hg. Pericardium/ Pleura There is no pericardial effusion. There is a moderately large left-sided pleural effusion. MMode/2D Measurements & Calculations LVIDd: 5.6 cm Ao root diam: 3.8 cm LVIDs: 3.7 cm Aortic Jxn: 2.6 cm FS: 33.5 % asc Aorta Diam: 4.1 cm EPSS: 0.63 cm Ao Arch Diam (Prox Trans): 3.6 cm IVSd: 0.98 cm LVPWd: 1.0 cm LV vasques. diameter/BSA (cm/m^2): 2.7 LV sys. diameter/BSA (cm/m^2): 1.8 LA dimension: 6.1 cm RA long axis: 6.9 cm LA A2 area: 45.1 cm2 RA area: 29.8 cm2 LA A4 area: 43.7 cm2 RA vol: 109.7 ml LA length (vol): 7.4 cm RA : 53.0 ml/m2 LA vol: 225.4 ml IVC diam: 2.4 cm LA vol index: 108.9 ml/m2 RVDd major: 7.3 cm RVD1 (basal): 4.7 cm RVD2 (mid): 4.2 cm Doppler Measurements & Calculations Ao V2 max: 176.4 cm/sec AI P1/2t: 592.6 msec Ao V2 mean: 114.3 cm/sec AI dec slope: 209.8 cm/sec2 Ao max P.4 mmHg Ao mean P.0 mmHg Ao V2 VTI: 35.5 cm MV E max kevin: 131.0 cm/sec TR max kevin: 261.9 cm/sec MV A max kevin: 40.6 cm/sec TR max P.4 mmHg MV E/A: 3.2 PA V2 max: 77.2 cm/sec Med Peak E' Kevin: 3.9 cm/sec PA V2 mean: 50.9 cm/sec E/E' med: 33.6 PA mean P.2 mmHg Lat Peak E' Kevin: 10.3 cm/sec PA Accel Time: 0.11 sec E/E' lat: 12.7 E/e' average: 23.2 MV dec time: 0.15 sec MV P1/2t: 44.6 msec MR ERO: 0.10 cm2 MV P1/2t max kevin: 132.2 cm/sec MR flow rate: 57.4 cm3/sec MVA(P1/2t): 4.9 cm2 MR PISA radius: 0.48 cm Reading Physician:MONIE
== END ==
PROVIDERS: Family Provider Student in an Organized Health Care Education/Training Program; PCP Student in an Organized Health Care Education/Training Program; Visit Provider Internal Medicine Cardiovascular Disease
DX: I08.3 Combined rheumatic disorders of mitral, aortic and tricuspid valves (principal); I77.810 Thoracic aortic ectasia; J90 Pleural effusion, not elsewhere classified; Z95.1 Presence of aortocoronary bypass graft
CPT/HCPCS: 93306

== ENCOUNTER → 2019-01-26 07:31 | Outpatient (CLI) | payer MEDICARE, SELFPAY ==
[2019-01-26 08:28] LABS: Alanine Aminotransferase 17 IU/L (21-72); Albumin 3.8 g/dL (3.5-5.0); Albumin Globulin Ratio 1.1 (1.0-2.8); Alkaline Phosphatase 77 U/L (38-126); Aspartate Aminotransferase 19 IU/L (17-59); BUN Creatinine Ratio 21.1 (6-22); Bilirubin Total 0.8 mg/dL (0.2-1.3); Blood Urea Nitrogen 19 mg/dL (9-20); Calcium 9.3 mg/dL (8.4-10.2); Carbon Dioxide 29 mmol/L (22-32); Chloride 103 mmol/L (98-107); Cholesterol 138 mg/dL (140-199); Estimated Glomerular Filt Rate > 60.0 mL/min (>60); Globulin 3.4 g/dL (1.7-4.1); Glucose 89 mg/dL (80-110); HDL Cholesterol 35 mg/dL (40-60); HEMOLYSIS < 15 (0-50); LDL Cholesterol Calculated 88 mg/dL (<100); Potassium 3.4 mmol/L (3.4-5.1); Sodium 141 mmol/L (137-145); Total Protein 7.2 g/dL (6.3-8.2); Triglycerides 74 mg/dL (35-150)
== END ==
PROVIDERS: Family Provider Student in an Organized Health Care Education/Training Program; PCP Student in an Organized Health Care Education/Training Program; Visit Provider Internal Medicine Cardiovascular Disease
DX: E78.5 Hyperlipidemia, unspecified (principal)
CPT/HCPCS: 36415; 80053; 80061

== ENCOUNTER → 2019-02-09 07:21 | Outpatient (CLI) | payer MEDICARE, SELFPAY ==
[2019-02-09 08:16] LABS: Blood Urea Nitrogen 20 mg/dL (9-20); Calcium 9.2 mg/dL (8.4-10.2); Carbon Dioxide 30 mmol/L (22-32); Chloride 102 mmol/L (98-107); Estimated Glomerular Filt Rate > 60.0 mL/min (>60); Glucose 89 mg/dL (80-110); HEMOLYSIS < 15 (0-50); Potassium 3.5 mmol/L (3.4-5.1); Sodium 137 mmol/L (137-145)
== END ==
PROVIDERS: PCP Student in an Organized Health Care Education/Training Program; Visit Provider Internal Medicine Cardiovascular Disease
DX: E87.6 Hypokalemia (principal)
CPT/HCPCS: 36415; 80048

== ENCOUNTER → 2019-02-16 07:18 | Outpatient (CLI) | payer MEDICARE, SELFPAY ==
[2019-02-16 08:52] LABS: BUN Creatinine Ratio 22.2 (6-22); Blood Urea Nitrogen 20 mg/dL (9-20); Calcium 9.1 mg/dL (8.4-10.2); Carbon Dioxide 27 mmol/L (22-32); Chloride 103 mmol/L (98-107); Estimated Glomerular Filt Rate > 60.0 mL/min (>60); Glucose 97 mg/dL (80-110); HEMOLYSIS < 15 (0-50); Potassium 3.9 mmol/L (3.4-5.1); Sodium 138 mmol/L (137-145)
== END ==
PROVIDERS: PCP Student in an Organized Health Care Education/Training Program; Visit Provider Internal Medicine Cardiovascular Disease
DX: I48.2 Chronic atrial fibrillation (principal)
CPT/HCPCS: 36415; 80048

== ENCOUNTER 2019-02-21 10:00 | Outpatient (RCR) | payer MEDICARE, SELFPAY | END 2019-03-13 12:24 | LOC: CAR 10:00 | PROVIDERS: Family Provider Student in an Organized Health Care Education/Training Program; PCP Student in an Organized Health Care Education/Training Program; Visit Provider Internal Medicine Cardiovascular Disease | DX: Z95.1 Presence of aortocoronary bypass graft (principal) | CPT/HCPCS: 93797; 93798 ==

== ENCOUNTER 2019-03-12 16:47 | Emergency (ER) | payer MEDICARE, SELFPAY ==
[2019-03-12 16:55] VITALS: BP 171/81; PULSE 94; RESP 20; TEMP 37.3; O2SAT 100
--- NOTE | 2019-03-12 17:05 | ED_ITS ---
HPI - Skin/Abscess/Foreign Bdy General Chief complaint: Skin/Abscess/Foreign Body Stated complaint: SWELLING OF LIP Time Seen by Provider: 03/12/19 17:00 Source: patient Mode of arrival: Ambulatory History of Present Illness HPI narrative: 79-year-old male nonsmoker with history of hypertension and hyperlipidemia presents with a few hours of swelling of his upper lip with an itchy red rash on his abdomen and back. He denies any new medications, soaps, lotions foods or any other possible triggers. He denies any difficulty swallowing, breathing. He denies any involvement of his tongue or throat. He denies any history of the same. He took no therapeutic medications prior to his arrival. He does think that something was crawling on his face and may have bit him on the lip as he felt of pinch of pain prior to the swelling. MD complaint: rash Onset (ago): hour(s) Tetanus up to date: yes Location: face, chest and back Severity: moderate Relieving factors: none Exacerbating factors: none Associated symptoms: itching Treatments prior to arrival: none Related Data Home Medications Medication Instructions Recorded Confirmed potassium chloride 40 meq PO BID #0 10/21/16 03/12/19 garlic 1,000 mg capsule 1,000 mg PO DAILY 03/21/18 03/12/19 melatonin 5 mg capsule 5 mg PO BEDTIME cap 03/21/18 03/12/19 rivaroxaban 20 mg tablet 20 mg PO QPM 03/21/18 03/12/19 Respironics DreamStation CPAP #1 ea 08/09/18 03/12/19 PreserVision AREDS 2 cap PO DAILY 10/06/18 03/12/19 amlodipine 5 mg PO DAILY 10/06/18 03/12/19 atorvastatin [Lipitor] 20 mg PO BEDTIME 10/06/18 03/12/19 metronidazole 1 applic TOPICAL BEDTIME 10/06/18 03/12/19 furosemide 40 mg tablet 40 mg PO DAILY 10/18/18 03/12/19 metoprolol succinate 50 mg 50 mg PO DAILY 10/18/18 03/12/19 tablet,extended release 24 hr finasteride 5 mg PO QPM 03/12/19 03/12/19 losartan 25 mg PO DAILY 03/12/19 03/12/19 multivitamin with minerals 1 tab PO DAILY 03/12/19 03/12/19 Previous Rx's Medication Instructions Recorded tamsulosin 0.4 mg capsule 0.4 mg PO QPM #90 cap 02/08/19 prednisone 20 mg PO DAILY #5 tab 03/12/19 Allergies Allergy/AdvReac Type Severity Reaction Status Date / Time Penicillins [PENICILLINS] Allergy Severe RASH Verified 12/20/18 13:46 Sulfa (Sulfonamide Allergy Intermediate HEART Verified 12/20/18 13:46 Antibiotics) MURMUR [SULFA (SULFONAMIDE ANTIBIOTICS)] Review of Systems Constitutional Constitutional: Denies chills, Denies fatigue, Denies fever(s), Denies frequent falls, Denies lethargy and Denies weakness Eyes Eyes: Denies change in vision, Denies eye discharge, Denies irritation and Denies loss of vision ENT Ears, Nose, Mouth, and Throat: Denies change in voice, Denies dizziness, Denies neck pain, Denies sore throat and Denies throat swelling Comments: Lip swelling Cardiovascular Cardiovascular: Denies chest pain, Denies irregular heart rhythm, Denies lightheadedness, Denies palpitations, Denies dyspnea, Denies dyspnea on exertion and Denies orthopnea Respiratory Respiratory: Denies cough, Denies dyspnea, Denies dyspnea on exertion and Denies wheezing Gastrointestinal Gastrointestinal: Denies abdominal pain, Denies change in bowel habits, Denies diarrhea, Denies nausea and Denies vomiting Genitourinary Genitourinary: Denies hematuria, Denies flank pain, Denies urinary incontinence and Denies urinary urgency Musculoskeletal Musculoskeletal: Denies back pain, Denies muscle weakness, Denies neck pain, Denies numbness and Denies tingling Integumentary/Breasts Skin/Breast: Reports pruritus, Denies erythema, Reports rash and Denies wounds Neurologic Neurologic: Denies behavioral changes, Denies confusion, Denies dizziness, Denies frequent falls, Denies loss of vision, Denies numbness, Denies tingling and Denies weakness Psychiatric Psychiatric: Denies anxiety, Denies behavioral changes, Denies confusion, Denies depression, Denies homicidal ideation and Denies suicidal ideation Endocrine Endocrine: Denies fatigue, Denies flushing and Denies palpitations Hematologic/Lymphatic Hematologic/Lymphatic: Denies easy bruising Allergic/Immunologic Allergic/Immunologic: Denies urticaria, Denies throat swelling and Denies wheezing [facility] Social History marital status: details: keenan Rushing, lives in [place] household members: spouse lives independently: Yes caregiver/support person: Yes (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 Well- nourished, well-developed patient, in mild distress. HEAD: Atraumatic. Normocephalic. EYES: Pupils equal round and reactive. Extraocular motions intact. No scleral icterus. No injection or drainage. ENT: Swollen upper lip Nose without bleeding, purulent drainage. Throat without erythema, tonsillar hypertrophy or exudate. Airway patent. NECK: Trachea midline. Non tender CARDIOVASCULAR: Regular rate and rhythm without murmurs, gallops, or rubs. RESPIRATORY: Clear to auscultation. Breath sounds equal bilaterally. No wheezes, rales, or rhonchi. GASTROINTESTINAL: Abdomen soft, non-tender, nondistended. EXTREMITIES: No edema or joint tenderness. BACK: Nontender without deformity or crepitance. No flank tenderness. NEURO: AOx3. SKIN: Erythematous pruritic rash of abdomen and back, no hives Initial Vital Signs Initial Vital Signs: Vital Signs Temperature 99.1 F 03/12/19 16:55 Pulse Rate 94 H 03/12/19 16:55 Respiratory Rate 20 03/12/19 16:55 Blood Pressure 171/81 H 03/12/19 16:55 Pulse Oximetry 100 03/12/19 16:55 Course Course Course Narrative: Patient feeling much better, ready for discharge. Orders Ordered: Discontinued Medications Diphenhydramine HCl (Benadryl) 25 mg IV NOW ONE Stop: 03/12/19 17:14 Famotidine (Pepcid) 20 mg in 50 mls @ 200 mls/hr IV NOW ONE Stop: 03/12/19 17:27 Last Admin: 03/12/19 18:28 Dose: 200 mls/hr Documented by: MALINI Methylprednisolone (Solu-Medrol 125 Mg Vial) 125 mg IV NOW ONE Stop: 03/12/19 17:14 Last Admin: 03/12/19 18:28 Dose: 125 mg Documented by: STOBEY Vital Signs Vital signs: Vital Signs - 8 hr 03/12/19 16:55 Temperature 99.1 F Pulse Rate 94 H Respiratory Rate 20 Blood Pressure 171/81 H Pulse Oximetry 100 Discharge Plan Departure Patient Disposition: Home Clinical Impression: Allergic reaction Qualifiers: Encounter type: initial encounter Qualified Code(s): T78.40XA - Allergy, unspecified, initial encounter Instructions: DI for General Allergic Reactions Activity Restrictions/Additional Instructions: *You have been diagnosed with [allergic reaction] *What to do: *Take medications as directed including [id number] Benadryl and Pepcid *Follow up with your primary care provider in 2-3 days, call for an appointment. Let them know you were seen in the Emergency Department and that we ask that you be seen in follow up *Return to ER if you should have any new, worsening or concerning symptoms, such as [worsening swelling, swelling of tongue or throat, difficulty with breathing or other concerning symptoms] Prescriptions: New prednisone 20 mg tablet 20 mg PO DAILY Qty: 5 RF: 0 No Action rivaroxaban [Xarelto] 20 mg tablet 20 mg PO QPM RF: 0 melatonin 5 mg capsule 5 mg PO BEDTIME RF: 0 garlic 1,000 mg capsule 1,000 mg PO DAILY RF: 0 potassium chloride 10 MEQ capsule, extended release 40 meq PO BID Qty: 0 RF: 0 tamsulosin [Flomax] 0.4 mg capsule 0.4 mg PO QPM Qty: 90 RF: 3 metoprolol succinate 50 mg tablet extended release 24 hr 50 mg PO DAILY RF: 0 furosemide 40 mg tablet 40 mg PO DAILY RF: 0 amlodipine 5 mg tablet 5 mg PO DAILY RF: 0 metronidazole 0.75 % cream 1 applic topical BEDTIME RF: 0 atorvastatin [Lipitor] 20 MG tablet 20 mg PO BEDTIME RF: 0 PreserVision AREDS 2 cap PO DAILY RF: 0 losartan 25 mg Tablet 25 mg PO DAILY RF: 0 multivitamin with minerals Tablet 1 tab PO DAILY RF: 0 finasteride 5 mg tablet 5 mg PO QPM RF: 0 (DME) Respironics DreamStation CPAP Qty: 1 RF: 0 Referrals: Demetrius Almazan MD [Primary Care Provider] -
[2019-03-12] MEDS: methylPREDNISolone 125 MG/2 ML VIAL IV (18:28)
[2019-03-12] MEDS: FAMOTIDINE 20 MG/50 ML PIGGYBACK 200 MG IV (18:28)
--- NOTE | 2019-03-12 19:54 | PC.NURSE ---
pt on stretcher. nad, only complaint upper lip swelling. tongue not swollen. at bedside.
== END 2019-03-12 19:58 | disposition home or self-care (01) ==
PROVIDERS: Emergency Provider Emergency Medicine; PCP Student in an Organized Health Care Education/Training Program
DX: T78.40XA Allergy, unspecified, initial encounter (principal)
CPT/HCPCS: 36415; 96365; 96366; 96375; 99283; 99284; J1200; J2930

== ENCOUNTER → 2019-08-01 07:01 | Outpatient (CLI) | payer MEDICARE, SELFPAY ==
[2019-08-01 08:05] LABS: Cholesterol 153 mg/dL (140-199); HDL Cholesterol 41 mg/dL (40-60); LDL Cholesterol Calculated 95 mg/dL (<100); Triglycerides 86 mg/dL (35-150)
== END ==
PROVIDERS: PCP Student in an Organized Health Care Education/Training Program; Referring Provider Internal Medicine Cardiovascular Disease; Visit Provider Internal Medicine Cardiovascular Disease
DX: E78.5 Hyperlipidemia, unspecified (principal)
CPT/HCPCS: 36415; 80061

== ENCOUNTER → 2019-08-27 07:14 | Outpatient (CLI) | payer MEDICARE, SELFPAY ==
[2019-08-27 08:09] LABS: Alanine Aminotransferase 21 IU/L (<50); Albumin 3.5 g/dL (3.5-5.0); Albumin Globulin Ratio 1.2 (1.0-2.8); Alkaline Phosphatase 70 U/L (38-126); Aspartate Aminotransferase 27 IU/L (17-59); BUN Creatinine Ratio 25.6 (6-22); Bilirubin Total 0.8 mg/dL (0.2-1.3); Blood Urea Nitrogen 23 mg/dL (9-20); Calcium 9.2 mg/dL (8.4-10.2); Carbon Dioxide 31 mmol/L (22-32); Chloride 103 mmol/L (98-107); Cholesterol 144 mg/dL (140-199); Estimated Glomerular Filt Rate > 60.0 mL/min (>60); Globulin 2.9 g/dL (1.7-4.1); Glucose 92 mg/dL (80-110); HDL Cholesterol 44 mg/dL (40-60); HEMOLYSIS < 15 (0-50); LDL Cholesterol Calculated 85 mg/dL (<100); Potassium 3.5 mmol/L (3.4-5.1); Sodium 139 mmol/L (137-145); Total Protein 6.4 g/dL (6.3-8.2); Triglycerides 75 mg/dL (35-150)
== END ==
PROVIDERS: PCP Student in an Organized Health Care Education/Training Program; Referring Provider Internal Medicine Cardiovascular Disease; Visit Provider Internal Medicine Cardiovascular Disease
DX: E78.5 Hyperlipidemia, unspecified (principal)
CPT/HCPCS: 36415; 80053; 80061

== ENCOUNTER → 2020-03-27 11:05 | Outpatient (CLI) | payer MEDICARE, SELFPAY ==
[2020-03-27 11:53] LABS: BUN Creatinine Ratio 20.7 (6-22); Blood Urea Nitrogen 18 mg/dL (9-20); Calcium 9.2 mg/dL (8.4-10.2); Carbon Dioxide 34 mmol/L (22-32); Chloride 100 mmol/L (98-107); Estimated Glomerular Filt Rate > 60.0 mL/min (>60); Glucose 122 mg/dL (80-110); HEMOLYSIS < 15 (0-50); Magnesium 2.2 mg/dL (1.6-2.3); Potassium 3.8 mmol/L (3.4-5.1); Sodium 137 mmol/L (137-145)
[2020-03-27 12:37] LABS: Thyroid Stimulating Hormone 2.82 uIU/mL (0.47-4.68)
== END ==
PROVIDERS: PCP Student in an Organized Health Care Education/Training Program; Referring Provider Internal Medicine Cardiovascular Disease; Visit Provider Internal Medicine Cardiovascular Disease
DX: I48.20 Chronic atrial fibrillation, unspecified (principal); I10 Essential (primary) hypertension
CPT/HCPCS: 36415; 80048; 83735; 84443

== ENCOUNTER → 2020-12-17 07:12 | Outpatient (CLI) | payer MEDICARE, SELFPAY ==
[2020-12-17 08:55] LABS: Cholesterol 137 mg/dL (140-199); HDL Cholesterol 41 mg/dL (40-60); LDL Cholesterol Calculated 80 mg/dL (<100); Triglycerides 80 mg/dL (35-150)
== END ==
PROVIDERS: PCP Student in an Organized Health Care Education/Training Program; Referring Provider Internal Medicine Cardiovascular Disease; Visit Provider Internal Medicine Cardiovascular Disease
DX: I25.810 Atherosclerosis of coronary artery bypass graft(s) without angina pectoris (principal); I10 Essential (primary) hypertension; I48.20 Chronic atrial fibrillation, unspecified; I49.3 Ventricular premature depolarization
CPT/HCPCS: 36415; 80061

== ENCOUNTER → 2021-01-27 13:37 | Outpatient (CLI) | payer MEDICARE, SELFPAY ==
--- NOTE | 2021-01-27 | DI.ECHO.S_ITS ---
[place] +---------+ [facility] +---------+ : : [address] : : : : [phone] : : : : Phone: [phone]---------+ Echocardiogram Report + + :Name: CHAPIN MASSEY Study Date: 01/27/2021 Height: 70 in : :[facility] ReadingLocation: Weight: 180 lb : : Gender: Male BSA: 2.0 m2 : :: 1940 Age: 80 yrs BP: 185/98 mmHg: :Reason For Study: AORTIC ECTASIA : :Ordering Physician: : :FABIO VARGAS Performed By: Guadalupe Machuca : :Referring: FABIO VARGAS : + + Interpretation Summary The left ventricle is normal in size and wall thickness. Left ventricular ejection fraction is estimated to be 55 +/- 5%. Left ventricular systolic function has slightly improved compared to the previous exam. E/E' med: 32.2 The right ventricle is mildly dilated. The right ventricular systolic function is normal. No significant valvular pathology seen. The ascending aorta is mildly enlarged. 4.0 cm in diameter. Previously it was 4.1 cm. Mild atherosclerotic plaque(s) in the aortic arch. The IVC is of normal diameter and collapses greater than 50% with a sniff. This suggests a low right atrial pressure of 3 mm Hg. In comparison to previous study, left pleural effusion got resolved as well. Procedure: A two-dimensional transthoracic echocardiogram with color flow and Doppler was performed. The study quality was technically adequate. Comparison is made with the echocardiogram of 01/01/2019. The patient was in atrial fibrillation with controlled ventricular rate during the exam. Left Ventricle: The left ventricle is normal in size and wall thickness. There is no thrombus. A false chord is noted (normal variant). Left ventricular ejection fraction is estimated to be 55 +/- 5%. Left ventricular systolic function has slightly improved compared to the previous exam. There are no focal wall motion abnormalities. E/E' med: 32.2. Right Ventricle: The right ventricle is mildly dilated. The right ventricular systolic function is normal. Atria: The left atrium is severely dilated. Both atria have remained unchanged in size since the prior echo exam. The right atrium is severely dilated. There is no Doppler evidence for an interatrial shunt. Mitral Valve: The mitral valve leaflets are mildly calcified. There is mild mitral annular calcification. There is mild mitral regurgitation. Aortic Valve: The aortic valve is trileaflet. The aortic valve opens well. There is no aortic valve stenosis. There is mild aortic regurgitation. Tricuspid Valve: The tricuspid valve is normal in structure and function. There is mild tricuspid regurgitation. The right ventricular systolic pressure is estimated to be at least 29 mmHg based on an estimated right atrial pressure of 3 mm Hg. Pulmonic Valve: The pulmonic valve leaflets are thin and pliable; valve motion is normal. There is mild pulmonic regurgitation. Great Vessels: The aortic root is normal size. The ascending aorta is mildly enlarged. Mild atherosclerotic plaque(s) in the aortic arch. The IVC is of normal diameter and collapses greater than 50% with a sniff. This suggests a low right atrial pressure of 3 mm Hg. Pericardium/ Pleura There is no pericardial effusion. There is no pleural effusion. MMode/2D Measurements & Calculations LVIDd: 5.4 cm LVOT diam: 2.0 cm LVIDs: 3.8 cm Ao root diam: 3.6 cm FS: 28.6 % asc Aorta Diam: 4.0 cm IVSd: 0.95 cm Ao Arch Diam (Prox Trans): 2.8 cm LVPWd: 1.1 cm LV vasques. diameter/BSA (cm/m^2): 2.7 LV sys. diameter/BSA (cm/m^2): 1.9 LA A2 area: 39.9 cm2 RA long axis: 7.2 cm LA A4 area: 41.0 cm2 RA area: 29.2 cm2 LA length (vol): 7.7 cm RA vol: 99.9 ml LA vol: 181.0 ml RA : 50.1 ml/m2 LA vol index: 90.7 ml/m2 IVC diam: 2.0 cm RVD1 (basal): 4.5 cm TAPSE: 2.0 cm Doppler Measurements & Calculations Ao V2 max: 174.3 cm/sec LVOT Max Kevin: 91.7 cm/sec Ao V2 mean: 111.0 cm/sec LV V1 max P.4 mmHg Ao max P.1 mmHg LV V1 VTI: 19.6 cm Ao mean P.7 mmHg MARYAN(I,D): 1.6 cm2 Ao V2 VTI: 38.0 cm MARYAN(V,D): 1.7 cm2 sev ratio: 0.52 MARYAN indexed to BSA (cm^2/m^2): 0.82 AI P1/2t: 773.2 msec AI dec slope: 177.6 cm/sec2 MV E max kevin: 136.3 cm/sec TR max kevin: 253.0 cm/sec MV A max kevin: 41.8 cm/sec TR max P.6 mmHg MV E/A: 3.3 PA V2 max: 99.3 cm/sec Med Peak E' Kevin: 4.2 cm/sec PA V2 mean: 65.9 cm/sec E/E' med: 32.2 PA mean P.0 mmHg Lat Peak E' Kevin: 12.1 cm/sec PA pr(Accel): 41.3 mmHg E/E' lat: 11.3 E/e' average: 21.7 MV dec time: 0.13 sec SV(LVOT): 62.1 ml Reading Physician:12:48 PM
== END ==
PROVIDERS: PCP Student in an Organized Health Care Education/Training Program; Referring Provider Internal Medicine Cardiovascular Disease; Visit Provider Internal Medicine Cardiovascular Disease
DX: I08.3 Combined rheumatic disorders of mitral, aortic and tricuspid valves (principal); I77.810 Thoracic aortic ectasia; I70.0 Atherosclerosis of aorta
CPT/HCPCS: 93306

== ENCOUNTER → 2021-03-17 07:23 | Outpatient (CLI) | payer MEDICARE, SELFPAY ==
[2021-03-17 08:22] LABS: Cholesterol 115 mg/dL (140-199); HDL Cholesterol 44 mg/dL (40-60); LDL Cholesterol Calculated 53 mg/dL (<100); Triglycerides 88 mg/dL (35-150)
== END ==
PROVIDERS: PCP Student in an Organized Health Care Education/Training Program; Referring Provider Internal Medicine Cardiovascular Disease; Visit Provider Internal Medicine Cardiovascular Disease
DX: E78.5 Hyperlipidemia, unspecified (principal)
CPT/HCPCS: 36415; 80061

== ENCOUNTER → 2021-07-09 11:59 | Outpatient (CLI) | payer MEDICARE, SELFPAY ==
--- NOTE | 2021-07-09 | DI.CT.S_ITS ---
PROCEDURE: CT SINUS SCREEN WO CON INDICATIONS: CHRONIC PANSINUSITIS TECHNIQUE: Noncontrast 3.0 mm axial images acquired from the frontal sinuses to the mid-sella, with coronal and sagittal reformats. For radiation dose reduction, the following was used: automated exposure control, adjustment of mA and/or kV according to patient size. COMPARISON: [facility], CT, HEAD WITHOUT CONTRAST, 06/10/2015, 13:25. FINDINGS: Image quality: Excellent. Maxillary Sinuses: There is complete opacification of the maxillary sinuses. There is absence of portions of the medial brito of the maxillary sinuses, left worse than right. Ethmoid Air Cells: Prominent mucosal thickening is seen within the anterior ethmoid air cells. Demineralization of the ethmoid air cell septations can be seen. Sphenoid Sinuses: No bony remodeling or destruction. Sinuses are clear. Frontal Sinuses: There is complete opacification of the frontal sinuses. Areas of bony thickening can be seen. Ostiomeatal Complexes: The ostiomeatal complexes are completely occluded and demineralized. Miscellaneous: Visualized intra-orbital contents are normal. Abnormal soft tissue can be seen within the nasal cavity, particularly on the right side. Portions of the nasal turbinates are demineralized, particularly the right-sided middle turbinates. There is moderate leftward nasal septal deviation. IMPRESSION: Prominent, advanced paranasal sinus disease is seen. The paranasal sinus disease has clearly worsened compared to 2014. Areas of bony demineralization are seen, which are consistent chronic sinusitis. The ostiomeatal complexes are completely occluded and demineralized. Soft tissue can be seen within the nasal cavity, right worse than left. Presumed underlying polyp disease is seen. There is demineralization of nasal turbinates, particularly the right middle turbinates. Dictated by: Solomon Painter M.D. on 07/09/2021 at 11:32 Approved by: Solomon Painter M.D. on 07/09/2021 at 11:35
== END ==
PROVIDERS: PCP Student in an Organized Health Care Education/Training Program; Referring Provider Otolaryngology; Visit Provider Otolaryngology
DX: J32.4 Chronic pansinusitis (principal); J33.9 Nasal polyp, unspecified; J34.89 Other specified disorders of nose and nasal sinuses
CPT/HCPCS: 70486

== ENCOUNTER → 2021-11-14 07:41 | Outpatient (CLI) | payer MEDICARE, SELFPAY ==
[2021-11-14 09:07] LABS: Alanine Aminotransferase 28 IU/L (<50); Albumin 3.1 g/dL (3.5-5.0); Albumin Globulin Ratio 1.3 (1.0-2.8); Alkaline Phosphatase 63 U/L (38-126); Aspartate Aminotransferase 28 IU/L (17-59); BUN Creatinine Ratio 19.1 (6-22); Bilirubin Total 1.5 mg/dL (0.2-1.3); Blood Urea Nitrogen 21 mg/dL (9-20); Calcium 8.7 mg/dL (8.4-10.2); Carbon Dioxide 32 mmol/L (22-32); Chloride 103 mmol/L (98-107); Cholesterol 123 mg/dL (140-199); Estimated Glomerular Filt Rate > 60 mL/min (>60); Globulin 2.3 g/dL (1.7-4.1); Glucose 91 mg/dL (80-110); HDL Cholesterol 53 mg/dL (40-60); HEMOLYSIS < 15 (0-50); LDL Cholesterol Calculated 55 mg/dL (<100); Potassium 3.7 mmol/L (3.4-5.1); Sodium 136 mmol/L (137-145); Total Protein 5.4 g/dL (6.3-8.2); Triglycerides 76 mg/dL (35-150)
== END ==
PROVIDERS: PCP Student in an Organized Health Care Education/Training Program; Referring Provider Internal Medicine Cardiovascular Disease; Visit Provider Internal Medicine Cardiovascular Disease
DX: E78.5 Hyperlipidemia, unspecified (principal)
CPT/HCPCS: 36415; 80053; 80061

== ENCOUNTER → 2022-06-16 07:42 | Outpatient (CLI) | payer MEDICARE, SELFPAY ==
[2022-06-16 08:57] LABS: BUN Creatinine Ratio 19.7 (6-22); Blood Urea Nitrogen 26 mg/dL (9-20); Carbon Dioxide 29 mmol/L (22-32); Chloride 101 mmol/L (98-107); Estimated Glomerular Filt Rate 54 mL/min (>60); Glucose 91 mg/dL (80-110); HEMOLYSIS < 15 (0-50); Magnesium 2.2 mg/dL (1.6-2.3); Potassium 3.2 mmol/L (3.4-5.1); Sodium 137 mmol/L (137-145)
== END ==
PROVIDERS: PCP Student in an Organized Health Care Education/Training Program; Referring Provider Internal Medicine Cardiovascular Disease; Visit Provider Internal Medicine Cardiovascular Disease
DX: I48.20 Chronic atrial fibrillation, unspecified (principal)
CPT/HCPCS: 36415; 80048; 83735

== ENCOUNTER → 2022-06-30 07:09 | Outpatient (CLI) | payer MEDICARE, SELFPAY ==
[2022-06-30 09:07] LABS: BUN Creatinine Ratio 20.2 (6-22); Blood Urea Nitrogen 23 mg/dL (9-20); Calcium 9.2 mg/dL (8.4-10.2); Carbon Dioxide 27 mmol/L (22-32); Chloride 101 mmol/L (98-107); Estimated Glomerular Filt Rate > 60 mL/min (>60); Glucose 80 mg/dL (80-110); HEMOLYSIS < 15 (0-50); Sodium 136 mmol/L (137-145)
== END ==
PROVIDERS: PCP Student in an Organized Health Care Education/Training Program; Referring Provider Internal Medicine Cardiovascular Disease; Visit Provider Internal Medicine Cardiovascular Disease
DX: I10 Essential (primary) hypertension (principal)
CPT/HCPCS: 36415; 80048

== ENCOUNTER → 2022-07-14 07:01 | Outpatient (CLI) | payer MEDICARE, SELFPAY ==
[2022-07-14 08:45] LABS: BUN Creatinine Ratio 16.1 (6-22); Blood Urea Nitrogen 19 mg/dL (9-20); Calcium 8.9 mg/dL (8.4-10.2); Carbon Dioxide 28 mmol/L (22-32); Chloride 103 mmol/L (98-107); Estimated Glomerular Filt Rate > 60 mL/min (>60); Glucose 83 mg/dL (80-110); HEMOLYSIS < 15 (0-50); Potassium 3.4 mmol/L (3.4-5.1); Sodium 137 mmol/L (137-145)
== END ==
PROVIDERS: PCP Student in an Organized Health Care Education/Training Program; Referring Provider Internal Medicine Cardiovascular Disease; Visit Provider Internal Medicine Cardiovascular Disease
DX: I10 Essential (primary) hypertension (principal); I25.5 Ischemic cardiomyopathy
CPT/HCPCS: 36415; 80048; 83735

== ENCOUNTER → 2023-02-28 07:24 | Outpatient (CLI) | payer MEDICARE, SELFPAY ==
[2023-02-28 09:23] LABS: Alanine Aminotransferase 24 IU/L (<50); Albumin 3.4 g/dL (3.5-5.0); Albumin Globulin Ratio 1.4 (1.0-2.8); Alkaline Phosphatase 69 U/L (38-126); Aspartate Aminotransferase 25 IU/L (17-59); BUN Creatinine Ratio 20.3 (6-22); Bilirubin Total 0.9 mg/dL (0.2-1.3); Blood Urea Nitrogen 24 mg/dL (9-20); Carbon Dioxide 26 mmol/L (22-32); Chloride 106 mmol/L (98-107); Cholesterol 119 mg/dL (140-199); Estimated Glomerular Filt Rate > 60 mL/min (>60); Globulin 2.5 g/dL (1.7-4.1); Glucose 83 mg/dL (80-110); HDL Cholesterol 36 mg/dL (40-60); HEMOLYSIS < 15 (0-50); LDL Cholesterol Calculated 68 mg/dL (<100); Magnesium 2.2 mg/dL (1.6-2.3); Potassium 3.4 mmol/L (3.4-5.1); Sodium 137 mmol/L (137-145); Total Protein 5.9 g/dL (6.3-8.2); Triglycerides 74 mg/dL (35-150)
== END ==
PROVIDERS: PCP Family Medicine; Referring Provider Internal Medicine Cardiovascular Disease; Visit Provider Internal Medicine Cardiovascular Disease
DX: I10 Essential (primary) hypertension (principal); E78.5 Hyperlipidemia, unspecified
CPT/HCPCS: 36415; 80053; 80061; 83735; 84443

== ENCOUNTER 2023-05-20 19:50 | Emergency (ER) | payer MEDICARE, SELFPAY ==
[2023-05-20 19:54] VITALS: BP 215/92; PULSE 67; RESP 16; TEMP 37; O2SAT 100; BMI 27.9
--- NOTE | 2023-05-20 20:17 | ED_ITS ---
HPI - Skin/Abscess/Foreign Bdy General Chief complaint: Skin/Abscess/Foreign Body Stated complaint: Left ear lobe bleed post op... 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 Patient states bled a little bit this morning stopped and then this evening had additional bleeding. He states it was dripping be trying to place pressure but did not seem to be adequate so he presents. It has since stopped is not actively bleeding currently. He states he did hold his evening Xarelto dose. Patient states was quite painful yesterday but is improving. patient states she had this performed yesterday. No other complaints or symptoms currently. Related Data Home Medications Medication Instructions Recorded Confirmed garlic 1,000 mg capsule 1,000 mg PO DAILY 03/21/18 04/07/22 melatonin 5 mg capsule 5 mg PO BEDTIME 03/21/18 04/07/22 rivaroxaban 20 mg tablet (Xarelto) 20 mg PO QPM 03/21/18 04/07/22 PreserVision AREDS 2 cap PO DAILY 10/06/18 04/07/22 amlodipine 5 mg tablet 5 mg PO DAILY 10/06/18 04/07/22 metoprolol succinate 50 mg 50 mg PO DAILY 10/18/18 04/07/22 tablet,extended release 24 hr losartan 25 mg tablet 25 mg PO DAILY 03/12/19 04/07/22 multivitamin with minerals 1 tab PO DAILY 03/12/19 04/07/22 potassium chloride 20 mEq 20 meq PO DAILY 08/29/19 04/07/22 tablet,extended release rosuvastatin 40 mg tablet 40 mg PO DAILY 03/28/20 04/07/22 ezetimibe 10 mg tablet (Zetia) 10 mg PO DAILY 04/02/21 04/07/22 Respironics DreamStation 2 CPAP #1 ea 10/01/21 04/07/22 turmeric root extract 500 mg 500 mg PO BID 04/07/22 04/07/22 capsule chlorthalidone 25 mg tablet 12.5 mg PO DAILY 06/09/22 Previous Rx's Medication Instructions Recorded gabapentin 300 mg capsule 300 mg PO BEDTIME #90 caps 05/27/22 finasteride 5 mg tablet 5 mg PO QPM #90 tabs 03/04/23 tamsulosin 0.4 mg capsule (Flomax) 0.4 mg PO QPM #90 caps 03/17/23 Allergies Allergy/AdvReac Type Severity Reaction Status Date / Time Penicillins [PENICILLINS] Allergy Severe RASH Verified 05/20/23 19:53 Sulfa (Sulfonamide Allergy Intermediate HEART Verified 05/20/23 19:53 Antibiotics) MURMUR [SULFA (SULFONAMIDE ANTIBIOTICS)] closed loop diuretics Allergy Swelling Uncoded 05/20/23 19:54 of Lip/Tongue/Throat Review of Systems Review of Systems ROS Unobtainable: All systems reviewed & are unremarkable except as noted in HPI and below Patient History Medical History Shoulder pain (~2009) Elevated PSA Fractures BPH (benign prostatic hyperplasia) Hyperlipidemia Hypertension Atrial fibrillation with controlled ventricular rate Primary insomnia Surgical History Hx of surgical procedure (~2008) History of tonsillectomy Family History Father Prostate cancer Grandfather CVA (cerebral vascular accident) Grandmother CVA (cerebral vascular accident) Mother CVA (cerebral vascular accident) Grandfather Congestive heart failure Grandmother Bleeding ulcer Social History marital status: details: keenan Rushing, lives in [place] household members: spouse lives independently: Yes caregiver/support person: Yes (he is the 24-hour/day caregiver for his ) Smoking Status: Never smoker alcohol intake: former substance use type: does not use Smoking Status: Never smoker Substance Use Type: does not use Exam Narrative Exam Narrative: GEN: well nourished, well appearing [default value], alert and oriented x 3, patient appears to be in mild distress. HEENT: Atraumatic, pupils are equal round reactive to light, extraocular movements are intact, nares are clear, patient's left lobe has proximally 8 sutures intact clean and dry without any erythema or swelling. There is dried crusted blood but no active bleeding. No clear source. There is no conjunctival pallor. Throat is clear without any exudates, erythema, tonsillar enlargement or uvular deviation HEART: Regular rate and rhythm without murmur, clicks, rubs. LUNGS:Lungs clear to auscultation, no wheezes, rales, crackles, chest moves symmetrically ABD:bowel sounds normal, soft, non-tender, no guarding, rebound, rigidity, no masses noted, no hepatosplenomegaly MSCL: full range of motion NEURO:CN 2-12 intact, sensation normal Initial Vital Signs Initial Vital Signs: Vital Signs Temperature 98.6 F 05/20/23 19:54 Pulse Rate 67 05/20/23 19:54 Respiratory Rate 16 05/20/23 19:54 Blood Pressure 215/92 H 05/20/23 19:54 Pulse Oximetry 100 05/20/23 19:54 Oxygen Delivery Method Room Air 05/20/23 19:54 Course Vital Signs Vital signs: Vital Signs - 8 hr 05/20/23 19:54 05/20/23 20:39 Temperature 98.6 F 97.8 F Pulse Rate 67 70 Respiratory Rate 16 16 Blood Pressure 215/92 H 174/86 H Pulse Oximetry 100 98 Oxygen Delivery Method Room Air Room Air MDM - Skin/Abscess/Foreign Bdy MDM Narrative Medical decision making narrative: 83-year-old male on Xarelto who had recent excision basal cell carcinoma of the pinna of his ear. Had some persistent bleeding today which is not present currently. Patient did hold his evening Xarelto dose discussed he could restart tomorrow. No active bleeding but patient was given a clamp which maybe easier for him to police pressure as well as a small piece of Surgicel if it reoccurs at home. We discussed if it does not stop he can return to the ER for re- evaluation. Patient feels comfortable with this plan patient was Re bandaged here in the department. Sutures otherwise intact and skin appears good without any signs infection Discharge Plan Departure Patient Disposition: Home Clinical Impression: Bleeding from left ear Activity Restrictions/Additional Instructions: Please follow-up with your digital advertising specialist as needed. You can place the Surgicel or cloth over the area of bleeding with a clamp or squeeze for 10-15 minutes. If this does not stop the bleeding or it persists please return to the emergency department. Please return if you are having fevers, persistent bleeding, lightheadedness or passing out, increasing pain or other new or concerning changes. Prescriptions: No Action rivaroxaban [Xarelto] 20 mg tablet 20 mg PO QPM melatonin 5 mg capsule 5 mg PO BEDTIME garlic 1,000 mg capsule 1,000 mg PO DAILY potassium chloride 20 mEq tablet extended release 20 meq PO DAILY rosuvastatin 40 mg tablet 40 mg PO DAILY gabapentin 300 mg capsule 300 mg PO BEDTIME Qty: 90 1RF chlorthalidone 25 mg tablet 12.5 mg PO DAILY finasteride 5 mg tablet 5 mg PO QPM Qty: 90 0RF Rx Instructions: PT WILL NEED TO BE SEEN BEFORE NEXT RENEWAL 12/08/22 tamsulosin [Flomax] 0.4 mg capsule 0.4 mg PO QPM Qty: 90 2RF metoprolol succinate 50 mg tablet extended release 24 hr 50 mg PO DAILY amlodipine 5 mg tablet 5 mg PO DAILY PreserVision AREDS 2 cap PO DAILY losartan 25 mg Tablet 25 mg PO DAILY multivitamin with minerals Tablet 1 tab PO DAILY ezetimibe [Zetia] 10 mg tablet 10 mg PO DAILY turmeric root extract 500 mg capsule 500 mg PO BID (DME) [employer] DreamStation 2 CPAP Qty: 1 Dose Instruction: As directed Patient Comments: Pressure: 4-8 cmH2O DME: [facility] Rx Instructions: As directed Referrals: Calvin Henao DO [Primary Care Provider] - Stand Alone Forms: Patient Portal/API
[2023-05-20 20:39] VITALS: BP 174/86; PULSE 70; RESP 16; TEMP 36.6; O2SAT 98
== END 2023-05-20 20:40 | disposition home or self-care (01) ==
PROVIDERS: Emergency Provider Emergency Medicine; PCP Family Medicine
DX: L76.21 Postprocedural hemorrhage of skin and subcutaneous tissue following a dermatologic procedure (principal); Z79.01 Long term (current) use of anticoagulants
CPT/HCPCS: 99281; 99282

== ENCOUNTER → 2023-08-29 12:22 | Outpatient (CLI) | payer MEDICARE, SELFPAY ==
--- NOTE | 2023-08-29 12:24 | DI.ECHO.S_ITS ---
[facility]---------+ [facility] +---------+ : : [address] : : : : [id number] : : : : Phone: [phone] Echocardiogram Report + + :Name: CHAPIN MASSEY Study Date: 08/29/2023 Height: 70 in : :[facility] ReadingLocation: Weight: 200 lb : : Gender: Male BSA: 2.1 m2 : :: 1940 Age: 83 yrs BP: 220/78 mmHg: :Reason For Study: Aortic, Ascending Aneurysm : : Performed By: Izzy Jones : :Referring: CAITLIN LAMBERT W : + + Interpretation Summary Atrial fibrillation with HR 51-61 bpm with uncontrolled hypertension. The left ventricle is moderately dilated with normal wall thickness. EF is 45- 50%. The right ventricle is mildly dilated with borderline reduced RV systolic function. There is severe LAE and moderate-severe GIUSEPPE. No significant valvular pathology seen. The ascending aorta is moderately enlarged. 4.3 cm in diameter on personal review. Previously it was 4.1 cm. Compared to prior study 01/27/2021 LV is more dilated. LV function is the same. Ascending aorta dilation progressed from 4.1 to 4.4 cm. Procedure: A two-dimensional transthoracic echocardiogram with color flow and Doppler was performed. The study quality was technically good. Comparison is made with the echocardiogram of 01-27-21. The heart rate ranged between 51- 61 bpm during the study. Left Ventricle: The left ventricle is moderately dilated. There is normal left ventricular wall thickness. The ejection fraction is estimated to be 45- 50%. Diastolic function could not be accurately assessed due to unobtainable data. Right Ventricle: The right ventricle is mildly dilated. Right ventricular systolic function is borderline reduced. Atria: The left atrium is severely dilated. The right atrium is moderate to severely dilated. The interatrial septum grossly appears intact with no obvious evidence for an atrial septal defect. Mitral Valve: The mitral valve leaflets appear moderately thickened, but open well. There is mild mitral regurgitation. Aortic Valve: The aortic valve is trileaflet. The aortic valve opens well. There is moderate aortic valve sclerosis. No aortic regurgitation is present. Tricuspid Valve: The tricuspid valve leaflets are thickened and/or calcified, but open well. There is mild to moderate tricuspid regurgitation. The right ventricular systolic pressure is estimated to be at least 38 mmHg based on an estimated right atrial pressure of 8 mm Hg. Pulmonic Valve: The pulmonic valve is not well seen, but is grossly normal. There is a trace or physiologic amount of pulmonic regurgitation. Great Vessels: The aortic root is borderline dilated. The ascending aorta is moderately enlarged. The aortic arch is mildly enlarged. The IVC is dilated (diameter is greater than 2.1 cm) yet it collapses greater than 50% with a sniff. This suggests a right atrial pressure of 8 mm Hg. Pericardium/ Pleura There is no pericardial effusion. There is no pleural effusion. MMode/2D Measurements & Calculations LVIDd: 6.4 cm LVOT diam: 2.0 cm LVIDs: 3.9 cm Ao root diam: 3.7 cm FS: 39.2 % asc Aorta Diam: 4.4 cm EPSS: 0.74 cm Ao Arch Diam (Prox Trans): 3.4 cm IVSd: 0.96 cm LVPWd: 0.92 cm LV vasques. diameter/BSA (cm/m^2): 3.1 LV sys. diameter/BSA (cm/m^2): 1.9 LA A2 area: 47.3 cm2 RA long axis: 7.7 cm LA A4 area: 54.2 cm2 RA area: 34.2 cm2 LA length (vol): 9.0 cm RA vol: 129.7 ml LA vol: 242.0 ml RA : 62.1 ml/m2 LA vol index: 115.9 ml/m2 IVC diam: 2.5 cm RVD1 (basal): 3.8 cm TAPSE: 1.5 cm Doppler Measurements & Calculations Ao V2 max: 173.9 cm/sec LVOT Max Kevin: 75.8 cm/sec Ao V2 mean: 110.4 cm/sec LV V1 max P.3 mmHg Ao max P.1 mmHg LV V1 VTI: 18.2 cm Ao mean P.8 mmHg MARYAN(I,D): 1.4 cm2 Ao V2 VTI: 41.9 cm MARYAN(V,D): 1.4 cm2 sev ratio: 0.43 MARYAN indexed to BSA (cm^2/m^2): 0.66 Med Peak E' Kevin: 3.4 cm/sec TR max kevin: 274.5 cm/sec Lat Peak E' Kevin: 11.5 cm/sec TR max P.1 mmHg MVA(VTI): 2.0 cm2 PA V2 max: 88.3 cm/sec PA V2 mean: 56.1 cm/sec PA mean P.5 mmHg PA pr(Accel): 31.0 mmHg MV V2 mean: 52.1 cm/sec SV(LVOT): 57.6 ml MV mean P.5 mmHg MV V2 VTI: 28.8 cm Electronically signed by: Latha Norman M.D. on Reading Physician:08/31/2023 03:13 AM
== END ==
LOC: ECHO 12:23
PROVIDERS: PCP Family Medicine; Referring Provider Nurse Practitioner; Visit Provider Nurse Practitioner
DX: I08.3 Combined rheumatic disorders of mitral, aortic and tricuspid valves (principal); I77.810 Thoracic aortic ectasia; I77.89 Other specified disorders of arteries and arterioles; I48.91 Unspecified atrial fibrillation; I10 Essential (primary) hypertension
CPT/HCPCS: 93306

== ENCOUNTER 2023-09-29 14:48 | Emergency (ER) | payer MEDICARE, SELFPAY ==
[2023-09-29 14:55] VITALS: BP 212/86; PULSE 88; RESP 16; TEMP 36.4; O2SAT 100; BMI 30.1
--- NOTE | 2023-09-29 15:22 | ED_ITS ---
HPI - Extremity Injury (Lower) <Alisha Brunner PA-C - Last Filed: 09/29/23 19:56> General Chief Complaint: Extremity Injury, Lower Stated Complaint: Knee pain Time Seen by Provider: 09/29/23 15:05 History of Present Illness HPI Narrative: 83-year-old male presents with concern for right knee pain since early this afternoon. Patient states he is fairly active walks fair amount and does use the treadmill but denies any specific known injury, he noticed today when he was walking around in town that his knee was hurting on the right on the outside. He states it is a sharp pain that is really only present when he is walking or actively using his leg it has not there when he is sitting still and relaxed. He has not noticed any new swelling, redness or heat of the area and denies pain elsewhere in his leg. He does also endorse that has a little bit of left-sided rib pain ever since Tuesday 5 days ago when he choked on some coleslaw in a restaurant and someone jumped in and did the Heimlich on him. He states he did not lose consciousness? I really was not really choking?. But since then he has had a little bit of rib discomfort on the left in the front in 1 spot that he can isolate. He also states he felt a popping sensation when the person did the Heimlich maneuver on him. He otherwise has been in his usual state of health and denies cough fevers chills nausea vomiting or any other symptoms. Related Data Home Medications Medication Instructions Recorded Confirmed garlic 1,000 mg capsule 1,000 mg PO DAILY 03/21/18 09/29/23 melatonin 5 mg capsule 5 mg PO BEDTIME 03/21/18 09/29/23 PreserVision AREDS 2 cap PO DAILY 10/06/18 09/29/23 multivitamin with minerals 1 tab PO DAILY 03/12/19 09/29/23 potassium chloride 20 mEq 30 meq PO BID 08/29/19 09/29/23 tablet,extended release Respironics DreamStation 2 CPAP #1 ea 10/01/21 09/29/23 turmeric root extract 500 mg 500 mg PO BID 04/07/22 09/29/23 capsule amlodipine 5 mg tablet 10 mg PO DAILY blood pressure 09/29/23 09/29/23 chlorthalidone 25 mg tablet 12.5 mg PO Q OTHER DAY blood 09/29/23 09/29/23 pressure losartan 25 mg tablet 50 mg PO DAILY blood pressure 09/29/23 09/29/23 Previous Rx's Medication Instructions Recorded tamsulosin 0.4 mg capsule (Flomax) 0.4 mg PO QPM #90 caps 03/17/23 ezetimibe 10 mg tablet (Zetia) 10 mg PO DAILY cholesterol #90 tabs 06/08/23 metoprolol succinate 50 mg 50 mg PO DAILY blood 06/08/23 tablet,extended release 24 hr pressure/heart rate #90 tabs rivaroxaban 20 mg tablet (Xarelto) 20 mg PO QPM a-fib #90 tabs 06/08/23 rosuvastatin 40 mg tablet 40 mg PO DAILY #90 tabs 06/08/23 finasteride 5 mg tablet 5 mg PO QPM #90 tabs 08/23/23 Allergies Allergy/AdvReac Type Severity Reaction Status Date / Time Penicillins [PENICILLINS] Allergy Severe RASH Verified 06/08/23 09:18 Sulfa (Sulfonamide Allergy Intermediate HEART Verified 06/08/23 09:18 Antibiotics) MURMUR [SULFA (SULFONAMIDE ANTIBIOTICS)] closed loop diuretics Allergy Swelling Uncoded 06/08/23 09:18 of Lip/Tongue/Throat Review of Systems <Alisha Brunner PA-C - Last Filed: 09/29/23 19:56> Review of Systems Narrative: See HPI Patient History <Alisha Brunner PA-C - Last Filed: 09/29/23 19:56> Medical History Encounter for subsequent annual wellness visit (AWV) in Medicare patient Shoulder pain (~2009) Elevated PSA Fractures BPH (benign prostatic hyperplasia) Hyperlipidemia Hypertension Atrial fibrillation with controlled ventricular rate Primary insomnia Surgical History Hx of surgical procedure (~2008) History of tonsillectomy Family History Father Prostate cancer Grandfather CVA (cerebral vascular accident) Grandmother CVA (cerebral vascular accident) Mother CVA (cerebral vascular accident) Grandfather Congestive heart failure Grandmother Bleeding ulcer Social History marital status: details: keenan Rushing, lives in [place] household members: spouse lives independently: Yes caregiver/support person: Yes (he is the 24-hour/day caregiver for his ) Smoking Status: Never smoker alcohol intake: former substance use type: does not use Smoking Status: Never smoker Substance Use Type: does not use Exam <Alisha Brunner PA-C - Last Filed: 09/29/23 19:56> Narrative Exam Narrative: GENERAL: [83] year old patient appears stated age. Well-developed patient, in mild distress. HEAD: Atraumatic. Normocephalic. EYES: Pupils equal round and reactive. Extraocular motions intact. No scleral icterus. No injection or drainage. ENT: Nose without bleeding, purulent drainage. Airway patent. NECK: Trachea midline. Non tender CARDIOVASCULAR: Regular rate and rhythm without murmurs, gallops, or rubs. RESPIRATORY: Clear to auscultation. Breath sounds equal bilaterally. No wheezes, rales, or rhonchi. GASTROINTESTINAL: Abdomen soft, non-tender, nondistended. EXTREMITIES: On the affected right knee there is tenderness swelling and a palpable small effusion present on the superolateral aspect of the knee above the patella. There is no erythema or heat noted. The patella is poorly mobile but pain-free with movement, passive movement of the right knee is pain-free, patient has increased pain with extension of the right knee. There is no tenderness of the popliteal fossa medial joint line or lateral joint line. Anterior and posterior drawer are negative. There is generalized LE bilateral edema--baseline per pt, no other joint tenderness. BACK/THORAX: There is tenderness over the left anterior chest proximally rib 6- 8 region at the anterior axillary line, there is no bruising noted. Thorax/ri bs/sternum is otherwise nontender. Spinous processes are Nontender without deformity or crepitance. No flank tenderness. NEURO: AOx3. SKIN: No rash or erythema of visible areas Initial Vital Signs Initial Vital Signs: Vital Signs Temperature 97.6 F 09/29/23 14:55 Pulse Rate 88 09/29/23 14:55 Respiratory Rate 16 09/29/23 14:55 Blood Pressure 212/86 H 09/29/23 14:55 Pulse Oximetry 100 09/29/23 14:55 Oxygen Delivery Method Room Air 09/29/23 14:55 <Saniya Mendoza DO - Last Filed: 10/01/23 07:47> Initial Vital Signs Initial Vital Signs: Vital Signs Temperature 97.6 F 09/29/23 14:55 Pulse Rate 88 09/29/23 14:55 Respiratory Rate 16 09/29/23 14:55 Blood Pressure 212/86 H 09/29/23 14:55 Pulse Oximetry 100 09/29/23 14:55 Oxygen Delivery Method Room Air 09/29/23 14:55 Course <Alisha Brunner PA-C - Last Filed: 09/29/23 19:56> Orders Ordered: ED Orders 09/29/23 15:20 XR knee RT 3V Stat XR ribs LT min 3V w CXR1V Stat Vital Signs Vital signs: Vital Signs - 8 hr 09/29/23 14:55 09/29/23 16:47 09/29/23 17:19 Temperature 97.6 F Pulse Rate 88 73 67 Respiratory Rate 16 18 14 Blood Pressure 212/86 H 179/81 H 185/85 H Pulse Oximetry 100 100 100 Oxygen Delivery Method Room Air Room Air Room Air <Saniya Mendoza DO - Last Filed: 10/01/23 07:47> Orders Ordered: ED Orders 09/29/23 15:20 XR knee RT 3V Stat XR ribs LT min 3V w CXR1V Stat Vital Signs Vital signs: Vital Signs - 8 hr 09/29/23 14:55 09/29/23 16:47 09/29/23 17:19 Temperature 97.6 F Pulse Rate 88 73 67 Respiratory Rate 16 18 14 Blood Pressure 212/86 H 179/81 H 185/85 H Pulse Oximetry 100 100 100 Oxygen Delivery Method Room Air Room Air Room Air MDM - Extremity Injury (Lower) <Alisha Brunner PA-C - Last Filed: 09/29/23 19:56> Differential Diagnosis Differential diagnosis: Likely acute internal derangement of knee and other (knee strain, knee sprain, aspiration, intercostal muscle strain) Medical Records Attestation: I reviewed the patient's medical records. Imaging Data Extremity x-ray #1: My Impression: Agree with Radiology interpretation Radiologist's Impression: [address] [address] XRay Report Signed Patient: Demetrius Samuels MR#: [id number] : 1940 Acct:[id number] Age/Sex: 83 / M Date of Service: 09/29/23 Loc: ED Accession Number: [id number] Procedure: XR knee RT 3V Ordering Provider: Alisha Brunner P.A-C PROCEDURE: XR KNEE RT 3V INDICATIONS: R lateral superior knee pain/tender/swelling no injury TECHNIQUE: 3 views of the knee were acquired. COMPARISON: None. FINDINGS: Bones: No fractures or dislocations. Mild degenerative changes with marginal spurring and mild medial joint space narrowing. No suspicious bony lesions. Soft tissues: Small joint effusion. No suspicious soft tissue calcifications. IMPRESSION: No acute osseous abnormalities. Small knee joint effusion. Mild degenerative changes. Dictated by: Cong Arana M.D. on 09/29/2023 at 16:07 Approved by: Cong Arana M.D. 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 [facility] 14[facility]. FINDINGS: Surgical changes and devices: Median sternotomy wires. Bones and chest wall: No fractures or dislocations. No suspicious bony lesions. Overlying soft tissues appear unremarkable. Lungs and pleura: Blunting of the left costophrenic angle. No pneumothorax. Lungs appear clear. Mediastinum: Mediastinal contours appear normal. Heart size is normal. IMPRESSION: 1. No displaced rib fracture or pneumothorax. 2. Blunting of left costophrenic angle may represent small effusion, atelectasis or consolidation. Dictated by: Cong Arana M.D. on 09/29/2023 at 16:12 Approved by: Cong Arana M.D. on 09/29/2023 at 16:14 [facility] Narrative Medical decision making narrative: This is a well-appearing 83-year-old male younger than stated age who takes rivaroxaban and came into the ER today with concern for right knee pain that began this afternoon while walking. Patient is quite active for his age uses a treadmill and walks around town. Has a palpable mild knee joint effusion on the right and this was also seen on x-ray. Discussed options with the patient and he declines knee immobilizer and crutches, he does accept an Bj wrap and he is counseled regarding RI CE and plan for follow-up care with primary care, consider return to ER or seeing orthopedics if he has not improving or if he worsens. Additionally patient endorsed having some mild intermittent left rib pain ever since he had the Heimlich done in a restaurant 5 days ago he has not been seen since that time. We discussed this and he was agreeable to chest x- ray and rib series which returned unremarkable there is possibly some atelectasis on the left as the costophrenic angle is blunted. However his lungs are clear on exam and he has had no symptoms suggestive of pneumonia. He is counseled to monitor carefully for new symptoms that might suggest this and follow up closely with his primary care provider. Discharge Plan Departure Patient Disposition: Home Clinical Impression: Effusion of knee joint right, Rib pain on left side Knee strain Qualifiers: Encounter type: initial encounter Laterality: right Qualified Code(s): S86.911A - Strain of unspecified muscle(s) and tendon(s) at lower leg level, right leg, initial encounter Instructions: DI for Knee Pain Activity Restrictions/Additional Instructions: *You have been diagnosed with [knee strain] *What to do: *Please continue to take your regular medications as directed. [ ] New medication prescriptions sent to your pharmacy: [ ] [ ] New medication written as a paper prescription [X ] No new medications given *Please follow up with your primary care provider in 2-3 days, call for an appointment. Let them know you were seen in the Emergency Department and that we ask that you be seen in follow up. We will electronically transmit a record of today's note if your PCP is in our system. You came in today with concern for new right-sided knee pain. You do have a small effusion or fluid collection there seen on x-ray that I can also find on exam. I suspect that you did sustain some trauma may be overuse from walking on the treadmill or walking around town. Otherwise your knee exam looked okay today but it is important that if this does not get better with supportive care and rest ice compression and elevation over the next 2-7 days that you seek re-evaluation because you may need additional imaging or evaluation if you are not improving or certainly if you are worsening. I do recommend he follow up closely with your primary care provider. You can consider seeing software applications specialist if you are not improving. We discussed a knee immobilizer/brace and crutches today but you declined this. I think based on your exam this is reasonable but it is important to try to stay off of your knee as much as possible for the next few days take it easy with activities such as bending or kneeling and tone down your walking activities and exercise for the time being until this improves. The Bj wrap will be important for compression and try to elevate your leg whenever you are at rest. The x-ray of your ribs and chest looked okay today we do not see any definite pneumonia and no rib fracture. Please do monitor carefully though if you develop worsening or new cough, increasing pain in your rib, fevers chills or other symptoms of concern please make sure you get re-evaluated. *If you do not have a primary care provider please contact the [facility] Resource line at [phone]. They will ask some questions about your medical history and help get you set up with a doctor in the community. *Return to Emergency Department if you should have any new, worsening or concerning symptoms, such as [fever greater than 101 F, shaking chills, worsening pain, persistent vomiting or other bothersome symptoms] Prescriptions: No Action melatonin 5 mg capsule 5 mg PO BEDTIME garlic 1,000 mg capsule 1,000 mg PO DAILY potassium chloride 20 mEq tablet extended release 30 meq PO BID tamsulosin [Flomax] 0.4 mg capsule 0.4 mg PO QPM Qty: 90 2RF finasteride 5 mg tablet 5 mg PO QPM Qty: 90 0RF ezetimibe [Zetia] 10 mg tablet 10 mg PO DAILY Qty: 90 3RF metoprolol succinate 50 mg tablet extended release 24 hr 50 mg PO DAILY Qty: 90 3RF Xarelto 20 mg tablet 20 mg PO QPM Qty: 90 3RF rosuvastatin 40 mg tablet 40 mg PO DAILY Qty: 90 3RF PreserVision AREDS 2 cap PO DAILY multivitamin with minerals Tablet 1 tab PO DAILY chlorthalidone 25 mg tablet 12.5 mg PO Q OTHER DAY amlodipine 5 mg tablet 10 mg PO DAILY losartan 25 mg tablet 50 mg PO DAILY turmeric root extract 500 mg capsule 500 mg PO BID (DME) [employer] DreamStation 2 CPAP Qty: 1 Dose Instruction: As directed Patient Comments: Pressure: 4-8 cmH2O DME: [facility] Rx Instructions: As directed Referrals: Calvin Henao DO [Primary Care Provider] - Stand Alone Forms: Patient Portal/API ED Sign-out <Saniya Mendoza DO - Last Filed: 10/01/23 07:47> Cosign ED Attending Cosignature Attestation: I was immediately available in the department for consultation.
[2023-09-29 16:47] VITALS: BP 179/81; PULSE 73; RESP 18; O2SAT 100
--- NOTE | 2023-09-29 17:15 | PC.NURSE ---
Patient has a history of high blood pressure and is not having headache, blurry vision, or chest pain. He states that he does not CHF but does have pitting edema in bilateral extremities and also states that he take a diuretic. He is not in acute distress at this time and was given an britney wrap for his knee pain. The patient was also seen and assessed by a provider
[2023-09-29 17:19] VITALS: BP 185/85; PULSE 67; RESP 14; O2SAT 100
== END 2023-09-29 17:21 | disposition home or self-care (01) ==
PROVIDERS: Emergency Provider Student in an Organized Health Care Education/Training Program; PCP Family Medicine
DX: S86.911A Strain of unspecified muscle(s) and tendon(s) at lower leg level, right leg, initial encounter (principal); R07.81 Pleurodynia; M25.461 Effusion, right knee
CPT/HCPCS: 71101; 73562; 99283

== ENCOUNTER → 2024-02-06 06:59 | Outpatient (CLI) | payer MEDICARE, SELFPAY ==
[2024-02-06 08:09] LABS: Hematocrit 34.1 % (41-53); Hemoglobin 11.2 g/dL (13.5-17.5); Mean Corpuscular HGB Conc 32.7 % (30-36); Mean Corpuscular Hemoglobin 27.9 PG (26-34); Mean Corpuscular Volume 85.3 fL (80-100); Platelet Count 143 X10^3/uL (150-400); Red Cell Distribution Width 17.5 % (11.6-14.8); White Blood Cell Count 6.5 X10^3/uL (4.5-11.0)
[2024-02-06 08:34] LABS: Alanine Aminotransferase 29 IU/L (<50); Albumin 3.3 g/dL (3.5-5.0); Albumin Globulin Ratio 1.2 (1.0-2.8); Alkaline Phosphatase 99 U/L (38-126); Aspartate Aminotransferase 34 IU/L (17-59); BUN Creatinine Ratio 20.1 (6-22); Bilirubin Total 0.7 mg/dL (0.2-1.3); Blood Urea Nitrogen 29 mg/dL (9-20); Calcium 8.7 mg/dL (8.4-10.2); Carbon Dioxide 24 mmol/L (22-32); Chloride 110 mmol/L (98-107); Cholesterol 121 mg/dL (140-199); Estimated Glomerular Filt Rate 48 mL/min (>60); Globulin 2.7 g/dL (1.7-4.1); Glucose 87 mg/dL (80-110); HDL Cholesterol 43 mg/dL (40-60); HEMOLYSIS < 15 (0-50); LDL Cholesterol Calculated 65 mg/dL (<100); Magnesium 2.4 mg/dL (1.6-2.3); Potassium 3.7 mmol/L (3.4-5.1); Sodium 138 mmol/L (137-145); Triglycerides 64 mg/dL (35-150)
== END ==
PROVIDERS: PCP Family Medicine; Referring Provider Nurse Practitioner; Visit Provider Nurse Practitioner
DX: E78.5 Hyperlipidemia, unspecified (principal); I48.20 Chronic atrial fibrillation, unspecified; I10 Essential (primary) hypertension
CPT/HCPCS: 36415; 80053; 80061; 83735; 85027

== ENCOUNTER → 2024-06-15 12:05 | Outpatient (CLI) | payer MEDICARE, SELFPAY ==
[2024-06-15 13:18] LABS: BUN Creatinine Ratio 15.7 (6-22); Blood Urea Nitrogen 25 mg/dL (9-20); Carbon Dioxide 25 mmol/L (22-32); Chloride 107 mmol/L (98-107); Estimated Glomerular Filt Rate 43 mL/min (>60); Glucose 121 mg/dL (80-110); HEMOLYSIS < 15 (0-50); Potassium 3.8 mmol/L (3.4-5.1); Sodium 138 mmol/L (137-145)
== END ==
PROVIDERS: PCP Family Medicine; Referring Provider Family Medicine; Visit Provider Family Medicine
DX: Z00.00 Encounter for general adult medical examination without abnormal findings (principal); N28.9 Disorder of kidney and ureter, unspecified; I10 Essential (primary) hypertension
CPT/HCPCS: 80048

== ENCOUNTER → 2024-08-27 07:18 | Outpatient (CLI) | payer MEDICARE, SELFPAY ==
[2024-08-27 07:51] LABS: Hematocrit 31.6 % (41-53); Hemoglobin 10.6 g/dL (13.5-17.5); Mean Corpuscular HGB Conc 33.7 % (30-36); Mean Corpuscular Hemoglobin 29.6 PG (26-34); Mean Corpuscular Volume 87.8 fL (80-100); Platelet Count 185 X10^3/uL (150-400); Red Cell Distribution Width 17.5 % (11.6-14.8); White Blood Cell Count 8.7 X10^3/uL (4.5-11.0)
[2024-08-27 08:06] LABS: Alanine Aminotransferase 26 IU/L (<50); Albumin 3.6 g/dL (3.5-5.0); Albumin Globulin Ratio 1.4 (1.0-2.8); Alkaline Phosphatase 118 U/L (38-126); Aspartate Aminotransferase 32 IU/L (17-59); BUN Creatinine Ratio 12.2 (6-22); Blood Urea Nitrogen 24 mg/dL (9-20); Calcium 9.1 mg/dL (8.4-10.2); Carbon Dioxide 19 mmol/L (22-32); Chloride 112 mmol/L (98-107); Estimated Glomerular Filt Rate 33 mL/min (>60); Globulin 2.6 g/dL (1.7-4.1); Glucose 112 mg/dL (80-110); HEMOLYSIS < 15 (0-50); Potassium 3.6 mmol/L (3.4-5.1); Sodium 142 mmol/L (137-145); Total Protein 6.2 g/dL (6.3-8.2)
== END ==
PROVIDERS: PCP Family Medicine; Referring Provider Nurse Practitioner; Visit Provider Nurse Practitioner
DX: I10 Essential (primary) hypertension (principal); I48.20 Chronic atrial fibrillation, unspecified
CPT/HCPCS: 36415; 80053; 85027

== ENCOUNTER → 2024-09-03 10:02 | Outpatient (CLI) | payer MEDICARE, SELFPAY ==
--- NOTE | 2024-09-03 10:04 | DI.RAD.S_ITS ---
PROCEDURE: XR CHEST 2V INDICATIONS: GE TECHNIQUE: 2 views of the chest were acquired. COMPARISON: [facility], [facility], XR CHEST 2V, 12/20/2018, 14:38. FINDINGS: Heart, mediastinum and pulmonary vascular: Heart is mildly enlarged. Left atrial appendage closure pin remains in stable position. Mediastinum is unremarkable. Pulmonary vascular is mildly distended Lungs: Bronchovascular markings in the right base have increased which could indicate a developing infiltrate Pleural spaces: Moderate chronic or recurrent left pleural effusion with atelectasis in the inferior lingula and left lower lobe is unchanged from remote 2019 x-ray . Bones and soft tissues: Sternotomy again noted. IMPRESSION: Mild CHF. Moderate chronic or recurrent left pleural effusion with compressive atelectasis inferior lingula and left lower lobe stable Possible developing pneumonia in the right base Dictated by: Catalino Cook M.D. on 09/04/2024 at 11:19 Approved by: Catalino Cook M.D. on 09/04/2024 at 11:22
== END ==
LOC: RAD 10:03
PROVIDERS: PCP Family Medicine; Referring Provider Nurse Practitioner; Visit Provider Nurse Practitioner
DX: J90 Pleural effusion, not elsewhere classified (principal); J98.11 Atelectasis; R06.09 Other forms of dyspnea; I51.7 Cardiomegaly
CPT/HCPCS: 71046

== ENCOUNTER → 2024-09-14 10:10 | Outpatient (CLI) | payer MEDICARE, SELFPAY | PROVIDERS: PCP Family Medicine; Visit Provider Family Medicine | DX: N50.89 Other specified disorders of the male genital organs (principal) | CPT/HCPCS: 87086 ==

== ENCOUNTER → 2024-09-21 15:30 | Outpatient (CLI) | payer MEDICARE, SELFPAY ==
--- NOTE | 2024-09-21 15:31 | DI.US.S_ITS ---
PROCEDURE: US SCROTUM INDICATIONS: SWELLING ?HERNIA VERSUS HYDROCELE TECHNIQUE: Real-time scanning was performed of the scrotum and testicles, with image documentation. Color and pulse Doppler interrogation was performed of both testicles. COMPARISON: None. FINDINGS: Right: Testicle is normal in size at 4.1 x 2.5 x 2.6 cm, and homogenous in echotexture. Epididymis is normal in overall size and morphology. Epididymal head cyst measuring 3 mm. Large hydrocele with septations. No varicoceles. Overlying scrotal skin is thickened with edema. Left: Testicle is normal in size at 4.2 x 2.4 x 2.5 cm, and homogeneous in echotexture. Prominent rete testes. Epididymis is normal in overall size and morphology. Epididymal head cyst measuring 12 mm. Possible septated epididymal tail cyst with vascularity measuring 3.3 x 1.7 x 0.9 cm. Large hydrocele with septations. No varicoceles. Overlying scrotal skin is thickened with edema. Doppler: Color and pulse Doppler demonstrate normal and symmetric arterial flow in both testicles. Right inguinal hernia which is non reducible containing fat and fluid and possible non peristalsing bowel within neck measuring 2.1 cm. IMPRESSION: 1. Non reducible right inguinal hernia containing possible non peristalsing bowel. 2. Large bilateral hydroceles with septations. Scrotal wall thickening bilaterally. 3. Bilateral epididymal cysts. Findings were communicated to the ordering provider by the isotope technologist. Dictated by: Cong Arana M.D. on 09/21/2024 at 17:44 Approved by: Cong Arana M.D. on 09/21/2024 at 17:48
== END ==
PROVIDERS: PCP Family Medicine; Referring Provider Family Medicine; Visit Provider Family Medicine
DX: N50.89 Other specified disorders of the male genital organs (principal); K40.30 Unilateral inguinal hernia, with obstruction, without gangrene, not specified as recurrent; N43.3 Hydrocele, unspecified; N50.3 Cyst of epididymis
CPT/HCPCS: 76870

== ENCOUNTER 2024-09-21 17:07 | Emergency (ER) | payer MEDICARE, SELFPAY ==
[2024-09-21] VITALS (12 sets, daily range): BP systolic 204–236; BP diastolic 88–124; PULSE 65–71; RESP 11–23; TEMP 36.6; O2SAT 89–99; BMI 29.9
--- NOTE | 2024-09-21 17:19 | EKG_ITS ---
[facility] [address], [place] [address] Test Date: 2024-09-21 Pat Name: [facility] Department: [facility] Room: Gender: Male Digital Print Operator: LAURO : 1940 Requested By: Order Number: [id number] Reading MD: Van Rios Measurements Intervals [place] Rate: 61 P: [place]: QRS: -7 QRSD: 122 T: 97 QT: 456 QTc: 459 Interpretive Statements Atrial fibrillation Minimal voltage criteria for LVH, may be normal variant ( [place] product ) Anterior infarct , age undetermined Electronically Signed On 10-01-2024 18:48:46 PDT by Van Rios
--- NOTE | 2024-09-21 17:25 | DI.CT.S_ITS ---
PROCEDURE: CT ABDOMEN PELVIS W CON INDICATIONS: ultrasound shows possible incarcerated hernia TECHNIQUE: After the administration of intravenous contrast, axial sections acquired from the lung bases to the pubic symphysis. Coronal and sagittal reformats were performed. For radiation dose reduction, the following was used: automated exposure control, adjustment of mA and/or kV according to patient size. COMPARISON: None. FINDINGS: Image quality: Diagnostic. Lower Chest: Cardiomegaly. Small left and trace right pleural effusions. Adjacent atelectasis versus consolidation in the left lower lobe. ABDOMEN: Liver: Right anterior patent mass measuring 2.5 cm with capsular retraction (2/56). Gallbladder: Cholelithiasis without evidence of gallbladder inflammation. Biliary ducts: No biliary dilation. Pancreas: Cystic areas within the pancreas, for example in the tail measuring 9 mm (2/52) and in the uncinate process measuring 9 mm (2/63). Spleen: Size is within normal limits. Adrenal Glands: No adrenal nodules. Kidneys and Ureters: No hydronephrosis. Ill-defined area within the right kidney, may represent infection versus mass. Multiple bilateral simple appearing cysts. Nonobstructing left renal stone measuring 5 mm. Stomach and Bowel: Normal colonic caliber, without significant wall thickening. Significant diverticulosis without evidence of acute diverticulitis. Peritoneum: Trace ascites. No free air. Ventral Wall: No significant ventral hernia. Mild anasarca. Abdominal Nodes: No retroperitoneal or mesenteric adenopathy by size criteria. Few low-density areas within the mesentery, for example just anterior to the splenic vein measuring 9 mm (2/69). Possible prominent lymph nodes within the right pelvis (2/109, 2/98). Vessels: Aorta and inferior vena cava are normal in size. Atherosclerotic vascular calcifications. PELVIS: Pelvic Organs: Prostate is normal in size. Large bilateral hydroceles and significant scrotal wall edema.. Bladder: No bladder wall thickening, accounting for underdistention. Pelvic Nodes: No enlarged lymph nodes. Miscellaneous: Right inguinal hernia containing fat, a loop of bowel and small fluid/stranding. Left inguinal hernia containing fat. Bones: No aggressive osseous abnormality. Sclerotic focus in the left iliac bone is likely a bone island. IMPRESSION: 1. Small right inguinal hernia containing fat and a loop of bowel with associated fluid and stranding. Incarcerated hernia cannot be excluded. No evidence of bowel obstruction. 2. Ill-defined mass within the right anterior hepatic lobe with capsular retraction measuring 2.5 cm. Findings are concerning for malignancy. 3. 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 Recommend nonurgent abdominal MRI with without contrast for further evaluation. Liver lesion can also be further evaluated on this exam. 4. Areas of heterogeneous low attenuation within the right kidney may represent mass versus infection. Attention on follow-up MRI or recommend ultrasound follow-up after treatment to assess for resolution. 5. Cholelithiasis without evidence of acute cholecystitis. 6. Trace ascites. Mesenteric stranding. 7. Scattered prominent nodules versus lymph nodes within the mesentery as well as right pelvis. Attention on follow-up imaging. 8. Large hydroceles and significant scrotal wall thickening is redemonstrated. 9. Small left and trace right pleural effusions. Adjacent atelectasis versus consolidation in the left lower lobe. Dictated by: Cong Arana M.D. on 09/21/2024 at 18:01 Approved by: Cong Arana M.D. on 09/21/2024 at 18:18
[2024-09-21 17:45] LABS: Add Manual Diff / Slide Review NO; Basophils Absolute Auto 200 /uL (0-100); Basophils Percent Auto 1.9 % (0-2); Eosinophils Absolute Auto 300 /uL (0-450); Eosinophils Percent Auto 3.9 % (2-4); Hematocrit 33.4 % (41-53); Lymphocytes Absolute Auto 1000 /uL (1100-4500); Lymphocytes Percent Auto 11.3 % (25-40); Mean Corpuscular Hemoglobin 28.6 PG (26-34); Mean Corpuscular Volume 86.6 fL (80-100); Monocytes Absolute Auto 900 /uL (0-900); Monocytes Percent Auto 9.8 % (3-14); Neutrophils Absolute Auto 6400 /uL (1500-7000); Neutrophils Percent Auto 73.1 % (50-75); Platelet Count 212 X10^3/uL (150-400); Red Blood Cell Count 3.86 X10^6/uL (4.5-5.9); Red Cell Distribution Width 16.5 % (11.6-14.8); White Blood Cell Count 8.7 X10^3/uL (4.5-11.0)
[2024-09-21 17:57] LABS: Alanine Aminotransferase 24 IU/L (<50); Albumin 3.9 g/dL (3.5-5.0); Albumin Globulin Ratio 1.3 (1.0-2.8); Alkaline Phosphatase 120 U/L (38-126); Aspartate Aminotransferase 27 IU/L (17-59); BUN Creatinine Ratio 15.3 (6-22); Bilirubin Total 0.7 mg/dL (0.2-1.3); Blood Urea Nitrogen 27 mg/dL (9-20); Calcium 9.5 mg/dL (8.4-10.2); Carbon Dioxide 24 mmol/L (22-32); Chloride 106 mmol/L (98-107); Estimated Glomerular Filt Rate 37 mL/min (>60); Globulin 3.1 g/dL (1.7-4.1); Glucose 128 mg/dL (80-110); HEMOLYSIS < 15 (0-50); Lipase 163 U/L (23-300); Potassium 3.5 mmol/L (3.4-5.1); Sodium 140 mmol/L (137-145)
--- NOTE | 2024-09-21 21:36 | PC.NURSE ---
patient placed on monitor and found to have o2 sat in 89% on RA. He was encouraged to take some deep breathes and he came back up to 94%. He was asked is he was in pain and stated no. he was asked if he was short of breath and he said no. He was was told his 02 was 89% and he stated maybe that's why I feel weird. He went on to say that his doctor has ordered him to have a pulmonary function test and that when he gets cold he gets SOB. Patient on continuous monitor.
--- NOTE | 2024-09-21 21:43 | DI.RAD.S_ITS ---
PROCEDURE: XR CHEST 1V INDICATIONS: lowO2 TECHNIQUE: One view of the chest was acquired. COMPARISON: [facility], CR, XR CHEST 2V, 09/03/2024, 10:01. [facility], CR, XR CHEST 2V, 12/20/2018, 14:38. [facility], CR, XR CHEST 1V, 11/08/2018, 11:03. [facility], CR, XR CHEST 1V, 10/06/2018, 10:35. FINDINGS: Surgical changes and devices: Left atrial appendage closure device. Median sternotomy wires. Lungs and pleura: Small left pleural effusion with associated atelectasis. No right pleural effusion. No pneumothorax. Mediastinum: Aortic arch calcifications. Cardiomegaly with left atrial enlargement. Bones and chest wall: No suspicious bony lesions. Overlying soft tissues appear unremarkable. IMPRESSION: Cardiomegaly with small left pleural effusion, similar to 09/03/2024. The Dictated by: Willy Jay M.D. on 09/21/2024 at 22:01 Approved by: Willy Jay M.D. on 09/21/2024 at 22:03
[2024-09-21 21:56] LABS: Creatine Kinase 65 U/L (55-170)
[2024-09-21 22:09] LABS: NT-proBNP (BNP-Adult 18+) 4280 pg/mL (<450); Troponin I 0.039 ng/mL (0.01-0.034)
--- NOTE | 2024-09-21 23:05 | PC.NURSE ---
I spoke with patient regarding high BP and asked him if he takes medicine for it at night. He reports I take three metoprolol in the morning. But my blood pressure is always high when I'm in the hospital, it will be better when I get home.
--- NOTE | 2024-09-21 23:24 | ED_ITS ---
HPI - General Adult General Chief complaint: Urogenital-Male Stated complaint: sent for hernia Time Seen by Provider: 09/21/24 21:43 Source: patient, RN notes reviewed and old records reviewed Mode of arrival: Ambulatory Limitations: no limitations History of Present Illness HPI narrative: 84-year-old male on Xarelto for history of atrial fibrillation, hypertension, dyslipidemia, LUIS MANUEL who presents after having an outpatient ultrasound for hydrocele and was sent for possible incarcerated hernia. Patient states he does not have any pain. He states his testicles has been swollen for about a month he sits both the stranding and a little bit of callus from rubbing on his thighs but denies any pain or discomfort. Denies any abdominal pain. No nausea, no vomiting. He was not had any fevers. It was states normal bowel movements he has not had any constipation. Denies any dysuria urgency or frequency. Patient states he gets short of breath when it is cold outside but states otherwise no shortness a breath. He denies any chest pain or pressure. Patient was trying to follow up with Urology his primary care is trying to help him with this as well. He was hypertensive here today he did not take his metoprolol earlier. Has a reported allergy to sulfa and penicillin. Related Data Home Medications Medication Instructions Recorded Confirmed garlic 1,000 mg capsule 1,000 mg PO DAILY 03/21/18 09/14/24 melatonin 5 mg capsule 5 mg PO BEDTIME 03/21/18 09/14/24 PreserVision AREDS 2 cap PO DAILY 10/06/18 09/14/24 multivitamin with minerals 1 tab PO DAILY 03/12/19 09/14/24 Respironics DreamStation 2 CPAP #1 ea 10/01/21 09/14/24 chlorthalidone 25 mg tablet 12.5 mg PO Q OTHER DAY blood 09/29/23 09/14/24 pressure amlodipine 10 mg tablet 5 mg PO DAILY blood pressure 09/14/24 losartan 50 mg tablet 50 mg PO DAILY 09/14/24 09/14/24 potassium chloride 10 mEq meq PO TID 09/14/24 09/14/24 capsule,extended release Previous Rx's Medication Instructions Recorded ezetimibe 10 mg tablet (Zetia) 10 mg PO DAILY cholesterol #90 tabs 06/15/24 finasteride 5 mg tablet 5 mg PO QPM #90 tabs 06/15/24 metoprolol succinate 50 mg 50 mg PO DAILY blood 06/15/24 tablet,extended release 24 hr pressure/heart rate #90 tabs rivaroxaban 20 mg tablet (Xarelto) 20 mg PO QPM a-fib #90 tabs 06/15/24 tamsulosin 0.4 mg capsule (Flomax) 0.4 mg PO QPM #90 caps 06/15/24 rosuvastatin 40 mg tablet 40 mg PO DAILY #90 tabs 08/27/24 Allergies Allergy/AdvReac Type Severity Reaction Status Date / Time Penicillins [PENICILLINS] Allergy Severe RASH Verified 09/14/24 10:35 Sulfa (Sulfonamide Allergy Intermediate HEART Verified 09/14/24 10:35 Antibiotics) MURMUR [SULFA (SULFONAMIDE ANTIBIOTICS)] closed loop diuretics Allergy Swelling Uncoded 09/14/24 10:35 of Lip/Tongue/Throat Review of Systems Review of Systems ROS Unobtainable: All systems reviewed & are unremarkable except as noted in HPI and below Patient History Medical History Encounter for subsequent annual wellness visit (AWV) in Medicare patient Shoulder pain (~2009) Elevated PSA Fractures BPH (benign prostatic hyperplasia) Hyperlipidemia Hypertension Atrial fibrillation with controlled ventricular rate Primary insomnia Surgical History [place] teeth removed (06/20/1959) Hx of surgical procedure (~2008) History of tonsillectomy Family History Father Prostate cancer Grandfather CVA (cerebral vascular accident) Grandmother CVA (cerebral vascular accident) Mother CVA (cerebral vascular accident) Grandfather Congestive heart failure Grandmother Bleeding ulcer Brother Hypertension Social History marital status: details: keenan Rushing, lives in [place] household members: spouse lives independently: Yes caregiver/support person: Yes (he is the 24-hour/day caregiver for his ) Smoking Status: Never smoker alcohol intake: former substance use type: does not use Smoking Status: Never smoker Exam Narrative Exam Narrative: GENERAL: Alert and oriented x three, elderly male in mild distress HEENT: Head normocephalic, atraumatic, EOMI, pupils reactive, face symmetric, moist mucous membranes NECK: Supple, full range of motion CARDIOVASCULAR: Irregularly irregular rate and rhythm without murmurs, rubs or gallops. Patient was bilateral extremity lower edema. RESPIRATORY: Breath sounds equal bilaterally, no wheezes rales or rhonchi. No tachypnea accessory muscle use ABDOMEN: Soft, nontender. Normoactive bowel sounds all 4 quadrants. No guarding or rebound, rigidity, no mass : No CVA tenderness, Male: Penis appears inverted, patient does have his testicular swelling bilaterally with what appears to be some chronic hyperkeratotic changes. He was nontender, there was no warmth. No erythema. No penile discharge or lesions. EXTREMITIES: Normal range of motion, no clubbing or edema. Neurovascularly intact NEUROLOGICAL: Cranial nerves II through XII grossly intact. Moving all extremities SKIN: Warm, dry, no petechiae, no rashes or lesions. Initial Vital Signs Initial Vital Signs: Vital Signs Temperature 98 F 09/21/24 17:13 Pulse Rate 66 09/21/24 17:13 Respiratory Rate 20 09/21/24 17:13 Blood Pressure 212/94 H 09/21/24 17:13 Pulse Oximetry 96 09/21/24 17:13 Oxygen Delivery Method Room Air 09/21/24 17:13 Course Orders Ordered: Discontinued Medications Furosemide (Furosemide 40 Mg/4 Ml Vial) 40 mg IV NOW ONE Stop: 09/21/24 23:57 Last Admin: 09/22/24 00:03 Dose: Not Given Documented By: BRENDA Ondansetron HCl (Ondansetron 4 Mg/2 Ml Inj) 4 mg IV NOW PRN PRN Reason: Nausea And Vomiting Ondansetron HCl (Ondansetron 4 Mg Odt) 4 mg PO NOW PRN PRN Reason: Nausea And Vomiting Vital Signs Vital signs: Vital Signs - 8 hr 09/21/24 17:13 09/21/24 19:07 09/21/24 19:09 Temperature 98 F Pulse Rate 66 71 69 Respiratory Rate 20 Blood Pressure 212/94 H Pulse Oximetry 96 91 95 Oxygen Delivery Method Room Air 09/21/24 19:09 09/21/24 19:30 09/21/24 20:00 Temperature Pulse Rate 65 66 Respiratory Rate Blood Pressure 225/88 H Pulse Oximetry 93 94 Oxygen Delivery Method 04/04/25 20:30 09/21/24 21:31 09/21/24 21:31 Temperature Pulse Rate 66 71 Respiratory Rate Blood Pressure 206/100 H Pulse Oximetry 92 89 L Oxygen Delivery Method Room Air 09/21/24 22:00 09/21/24 22:00 09/21/24 22:30 Temperature Pulse Rate 68 67 Respiratory Rate 23 12 Blood Pressure 204/124 H Pulse Oximetry 95 97 Oxygen Delivery Method 09/21/24 23:00 09/21/24 23:01 09/21/24 23:01 Temperature Pulse Rate 66 68 Respiratory Rate 15 18 Blood Pressure 236/101 H Pulse Oximetry 98 99 Oxygen Delivery Method Medical Decision Making Lab Data 09/21/24 17:30 09/21/24 17:30 Labs: Lab Results 09/21/24 Range/Units 17:30 WBC 8.7 (4.5-11.0) X10^3/uL RBC 3.86 L (4.5-5.9) X10^6/uL Hgb 11.0 L (13.5-17.5) g/dL Hct 33.4 L (41-53) % MCV 86.6 (80-100) fL MCH 28.6 (26-34) PG MCHC 33.0 (30-36) % RDW 16.5 H (11.6-14.8) % Plt Count 212 (150-400) X10^3/uL Neut % (Auto) 73.1 (50-75) % Lymph % (Auto) 11.3 L (25-40) % Alexander % (Auto) 9.8 (3-14) % Eos % (Auto) 3.9 (2-4) % Baso % (Auto) 1.9 (0-2) % Neut # (Auto) 6400 (5762-1203) /uL Lymph # (Auto) 1000 L (3339-5787) /uL Alexander # (Auto) 900 (0-900) /uL Eos # (Auto) 300 (0-450) /uL Baso # (Auto) 200 H (0-100) /uL Sodium 140 (137-145) mmol/L Potassium 3.5 (3.4-5.1) mmol/L Chloride 106 (98-107) mmol/L Carbon Dioxide 24 (22-32) mmol/L BUN 27 H (9-20) mg/dL Creatinine 1.77 H (0.66-1.25) mg/dL Estimated GFR 37 L (>60) mL/min BUN/Creatinine Ratio 15.3 (6-22) Glucose 128 H (80-110) mg/dL Calcium 9.5 (8.4-10.2) mg/dL Total Bilirubin 0.7 (0.2-1.3) mg/dL AST 27 (17-59) IU/L ALT 24 (<50) IU/L Alkaline Phosphatase 120 (38-126) U/L Total Creatine Kinase 65 (55-170) U/L Troponin I 0.039 H (0.01-0.034) ng/mL NT-Pro-B Natriuret Pep 4280 H (<450) pg/mL Total Protein 7.0 (6.3-8.2) g/dL Albumin 3.9 (3.5-5.0) g/dL Globulin 3.1 (1.7-4.1) g/dL Albumin/Globulin Ratio 1.3 (1.0-2.8) Lipase 163 (23-300) U/L Urine Dip Bedside Urine Glucose Negative Bedside Urine Bilirubin - Negative Bedside Urine Ketone - Negative Urine Specific Morning Sun 1.015 Bedside Urine Occult Blood +/- Bedside Urine pH 6.0 Bedside Urine Protein +/- 15 Bedside Urine Urobilinogen +/- 1mg Bedside Urine Nitrite - Negative Bedside Urine Leukocytes - Negative Esterase Point of care testing: Urine Dip Bedside Urine Glucose Negative Bedside Urine Bilirubin - Negative Bedside Urine Ketone - Negative Urine Specific Morning Sun 1.015 Bedside Urine Occult Blood +/- Bedside Urine pH 6.0 Bedside Urine Protein +/- 15 Bedside Urine Urobilinogen +/- 1mg Bedside Urine Nitrite - Negative Bedside Urine Leukocytes - Negative Esterase ECG Data Attestation: I personally reviewed and interpreted this ECG as follows: Interpretation: AFib with a rate of 61 QRS of 122 QTC of 459. MDM Narrative Medical decision making narrative: Labs show white count of 8.7 hemoglobin of 11 platelets of 212, chemistry shows creatinine 1.77 improved from earlier in August, BUN 27 electrolytes are appropriate glucose is 128 troponin 0.039 with a BNP of 4280. Point of care urine shows protein negative nitrates and leukocyte esterase. EKG shows AFib rate of 61 QRS of 122 QTC of 459. Chest x-ray shows cardiomegaly with small left pleural effusion similar to 09/03/2024 left atrial appendage closure device median sternotomy wire. CT abdomen pelvis shows cardiomegaly adjacent atelectasis versus consolidation left lower lobe patient has right anterior patent mass measuring 2.5 cm with capsular retraction cholelithiasis without gallbladder inflammation cystic areas within the pancreas measuring 9 mm in the uncinate process also measuring 9 mm. Ill-defined area with a in the right kidney may represent infection versus mass multiple bilateral simple appearing cyst nonobstructing left renal stone. Trace ascites. Mild anasarca. Large bilateral hydroceles and significant scrotal wall edema. Right inguinal hernia containing fat the loop of bowel no evidence of bowel obstruction. And small fluid stranding left inguinal hernia containing fat. US scrotum none reducible right inguinal hernia containing possible not appear still seeing bowel large bilateral hydroceles with septations. Scrotal wall thickening bilaterally. Bilateral epididymal cysts. 84-year-old male who had outpatient hydrocele ultrasound and for the ED for possible incarcerated hernia patient has not had any pain has had scrotal swelling for approximately a month. Patient exam does not appear to have incarcerated hernia or bowel obstruction. [place] appropriate for discharge and follow up he states his hernia has been there for at least a year. Reviewed all his findings he did have a dip in his oxygen at 1 point was placed on oxygen but has not been persistent. Patient does not wish to stay overnight he does not appear to have some CHF component this might be causing some of his scrotal wall edema. Patient we will refer to Urology does not appear to have any infection currently in the testicular area. Did talk with the patient and family on the phone to review findings concern for malignancy and need for follow up with Oncology. Reviewed all of these findings with the patient was family on the phone. Patient does not wish to stay overnight and much prefers to return home. He notes that he has a home pulse oximetry and he states if he was low at home he will return for re-evaluation. Discharge Plan Departure Patient Disposition: Home Clinical Impression: Hernia, inguinal, right, Liver mass, Bilateral hydrocele, Scrotal edema Activity Restrictions/Additional Instructions: Your workup today you do have a right inguinal hernia does not appear to have an obstruction or be incarcerated I would recommend follow up with General surgery to decide if you wish to pursue repair. Your workup today did show changes in your abdomen concerning for malignancy including a mass in the liver, cystic areas within the pancreas in an ill- defined area in the right kidney. You do have large hydroceles in the testicular area as well as scrotal wall thickening this was seen on your ultrasound as well. You also have some small pleural effusions on imaging. Please call Tuesday morning to set up follow up with Urology. I would also have you talk with your physician to follow up with Oncology if you wish to pursue further workup for the changes in your abdomen. Continue your home medications as prescribed. I would ask that you take your chlorthalidone 25 daily x 3 days and then return to 12.5mg daily. Your workup does show that you appear to have little bit of fluid overload today. Your family asked about your kidney function your GFR today is 37, you were 33 on August 27 and 43 in May 2024. Please return for any new or worsening symptoms, new abdominal back or flank pain, vomiting, if you are not having bowel movements or passing gas/flatus, increasing swelling or pain of your testicles, increasing swelling of your lower extremities, new shortness of breath or other new or concerning changes. Prescriptions: No Action melatonin 5 mg capsule 5 mg PO BEDTIME garlic 1,000 mg capsule 1,000 mg PO DAILY rosuvastatin 40 mg tablet 40 mg PO DAILY Qty: 90 3RF potassium chloride 10 mEq capsule, extended release PO TID losartan 50 mg tablet 50 mg PO DAILY amlodipine 10 mg tablet 5 mg PO DAILY ezetimibe [Zetia] 10 mg tablet 10 mg PO DAILY Qty: 90 3RF finasteride 5 mg tablet 5 mg PO QPM Qty: 90 3RF metoprolol succinate 50 mg tablet extended release 24 hr 50 mg PO DAILY Qty: 90 3RF Xarelto 20 mg tablet 20 mg PO QPM Qty: 90 3RF tamsulosin [Flomax] 0.4 mg capsule 0.4 mg PO QPM Qty: 90 3RF PreserVision AREDS 2 cap PO DAILY multivitamin with minerals Tablet 1 tab PO DAILY chlorthalidone 25 mg tablet 12.5 mg PO Q OTHER DAY Hold Instructions: Home Medication placed on hold at Doctor's office (DME) Respironics DreamStation 2 CPAP Qty: 1 Dose Instruction: As directed Patient Comments: Pressure: 4-8 cmH2O DME: [facility] Rx Instructions: As directed Referrals: Manjit Dillon MD [Physician] - Calvin Henao DO [Primary Care Provider] - Stand Alone Forms: Patient Portal/API/Survey
--- NOTE | 2024-09-21 23:57 | PC.NURSE ---
pt ambulated to the BR, pulse ox applied when out of the BR coming back to room 88% noted walking back to room Dr Mendoza notified, pt without c/o states that is only up here, I do better at home
[2024-09-22] VITALS: PULSE 71; RESP 13; O2SAT 93
[2024-09-22 00:01] VITALS: BP 202/86; PULSE 73; RESP 16; O2SAT 93
== END 2024-09-22 00:22 | disposition home or self-care (01) ==
PROVIDERS: Family Medicine; Emergency Provider Emergency Medicine; PCP Family Medicine
DX: K40.90 Unilateral inguinal hernia, without obstruction or gangrene, not specified as recurrent (principal); R16.0 Hepatomegaly, not elsewhere classified; N43.3 Hydrocele, unspecified; N50.89 Other specified disorders of the male genital organs; K40.30 Unilateral inguinal hernia, with obstruction, without gangrene, not specified as recurrent; N50.3 Cyst of epididymis
CPT/HCPCS: 36415; 71045; 74177; 76870; 80053; 81003; 82550; 83690; 83880; 84484; 85025; 93005; 99284

== ENCOUNTER → 2024-10-17 10:28 | Outpatient (CLI) | payer MEDICARE, SELFPAY ==
--- NOTE | 2024-10-17 10:29 | DI.CT.S_ITS ---
PROCEDURE: CT ABDOMEN PANCREATIC PROTOCOL INDICATIONS: hepatic and pancreatic mass. TECHNIQUE: Both before and after the administration of intravenous contrast, 3 mm thick pancreatic-phase images acquired from the diaphragm to the iliac crests. 3 mm thick coronal and sagittal reformats were performed. For radiation dose reduction, the following was used: automated exposure control, adjustment of mA and/or kV according to patient size. COMPARISON: [facility], CT, CT ABDOMEN PELVIS W CON, 09/21/2024, 17:47. FINDINGS: Image quality: Diagnostic. Lower chest: Marked cardiomegaly. Moderate, loculated left-sided pleural effusion. Trace right pleural effusion. ABDOMEN: Pancreas: Multiple cystic lesions throughout the parenchyma, largest measuring 1.1 cm in the pancreatic head (series 5, image 64). Additionally, there is a ill-defined hypoattenuating region in the body/neck of the pancreas measuring 1.6 cm (series 5, image 51). Liver: Enhancing mass with ill-defined margins and capsular retraction in segment 4/5 of the liver measuring 2.7 cm (series 5, image 62). Additional multiple foci of enhancement throughout the liver parenchyma, without corresponding signal on other sequences. For instance, the 1.2 cm lesion in segment 5 (series 5, image 62). Gallbladder: Cholelithiasis without wall thickening or adjacent fat stranding to suggest acute cholecystitis. Biliary ducts: No biliary dilation. Adrenal Glands: No nodules. Spleen: Size is within normal limits. Kidneys and Ureters: No hydronephrosis. No solid mass. No complex renal cystic lesion which requires follow up. Multiple bilateral renal cysts, with out significant enhancement. 4 mm nonobstructing left-sided nephrolithiasis. Stomach and Bowel: Normal colonic caliber, without significant wall thickening. Colonic diverticulosis without evidence of diverticulitis. Peritoneum: No abnormal intraperitoneal fluid. No free air. Ventral Wall: No hernia. Abdominal Nodes: No retroperitoneal or mesenteric adenopathy by size criteria. Vessels: Aorta and inferior vena cava are normal in size. Bones: No aggressive osseous abnormality. IMPRESSION: Enhancing mass in segment 4/5 of the liver measuring 2.7 cm with capsular retraction. Additional hyperenhancing lesions without significant signal abnormality on the delayed sequences. Findings raise a concern for diffuse metastatic disease. Consider CT or ultrasound-guided biopsy of the segment 4/5 lesion. Ill-defined region of hypoattenuation in the pancreatic body/tail measuring 1.6 cm. No associated ductal dilation. Findings could represent a conglomerate of small cysts but primary malignancy is not excluded. Consider GI referral for endoscopic evaluation if possible. 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 No suspicious renal mass. Loculated left-sided pleural effusion. Marked cardiomegaly. Additional chronic findings as above. Dictated by: Yazan Tsai M.D. on 10/17/2024 at 14:48 Approved by: Yazan Tsai M.D. on 10/17/2024 at 15:03
== END ==
PROVIDERS: PCP Family Medicine; Referring Provider Family Medicine; Visit Provider Family Medicine
DX: K76.9 Liver disease, unspecified (principal); K86.9 Disease of pancreas, unspecified; Q45.3 Other congenital malformations of pancreas and pancreatic duct; J90 Pleural effusion, not elsewhere classified; I51.7 Cardiomegaly; K80.20 Calculus of gallbladder without cholecystitis without obstruction; N28.1 Cyst of kidney, acquired; K57.90 Diverticulosis of intestine, part unspecified, without perforation or abscess without bleeding
CPT/HCPCS: 74170; Q9967

== ENCOUNTER → 2024-11-13 07:11 | Outpatient (CLI) | payer MEDICARE, SELFPAY ==
[2024-11-13 08:18] LABS: BUN Creatinine Ratio 14.6 (6-22); Blood Urea Nitrogen 27 mg/dL (9-20); Calcium 9.1 mg/dL (8.4-10.2); Carbon Dioxide 23 mmol/L (22-32); Chloride 109 mmol/L (98-107); Estimated Glomerular Filt Rate 35 mL/min (>60); Glucose 97 mg/dL (70-99); HEMOLYSIS < 15 (0-50); Potassium 3.5 mmol/L (3.4-5.1); Sodium 141 mmol/L (137-145)
== END ==
PROVIDERS: PCP Family Medicine; Referring Provider Nurse Practitioner; Visit Provider Nurse Practitioner
DX: I48.20 Chronic atrial fibrillation, unspecified (principal)
CPT/HCPCS: 36415; 80048

== ENCOUNTER → 2024-11-29 07:09 | Outpatient (CLI) | payer MEDICARE, SELFPAY ==
[2024-11-29 08:35] LABS: BUN Creatinine Ratio 16.1 (6-22); Blood Urea Nitrogen 26 mg/dL (9-20); Calcium 9.1 mg/dL (8.4-10.2); Carbon Dioxide 23 mmol/L (22-32); Chloride 108 mmol/L (98-107); Estimated Glomerular Filt Rate 42 mL/min (>60); Glucose 87 mg/dL (70-99); HEMOLYSIS < 15 (0-50); Potassium 3.2 mmol/L (3.4-5.1); Sodium 139 mmol/L (137-145)
== END ==
PROVIDERS: PCP Family Medicine; Referring Provider Internal Medicine Cardiovascular Disease; Visit Provider Internal Medicine Cardiovascular Disease
DX: I48.20 Chronic atrial fibrillation, unspecified (principal)
CPT/HCPCS: 36415; 80048

== ENCOUNTER → 2024-12-17 07:02 | Outpatient (CLI) | payer MEDICARE, SELFPAY ==
[2024-12-17 07:52] LABS: BUN Creatinine Ratio 19.6 (6-22); Blood Urea Nitrogen 32 mg/dL (9-20); Calcium 8.9 mg/dL (8.4-10.2); Carbon Dioxide 22 mmol/L (22-32); Chloride 109 mmol/L (98-107); Estimated Glomerular Filt Rate 41 mL/min (>60); Glucose 93 mg/dL (70-99); HEMOLYSIS < 15 (0-50); Potassium 3.4 mmol/L (3.4-5.1); Sodium 139 mmol/L (137-145)
== END ==
PROVIDERS: PCP Family Medicine; Referring Provider Internal Medicine Cardiovascular Disease; Visit Provider Internal Medicine Cardiovascular Disease
DX: E87.6 Hypokalemia (principal)
CPT/HCPCS: 36415; 80048

== ENCOUNTER → 2025-01-22 | Outpatient (CLI) | payer MEDICARE, SELFPAY ==
--- NOTE | 2025-02-06 07:46 | DI.NM.S_ITS ---
DATE OF SERVICE: 02/05/2025 PERFUSION STUDY INDICATION: Known history of two-vessel bypass surgery in 2019 with history of chronic AFib, hypertension, hyperlipidemia, and HFrEF. Perfusion study is being done for CAD risk stratification. RADIOPHARMACEUTICAL: 25.1 millicurie technetium-99m Myoview IV was injected at stress and 26.1 millicurie technetium-99m Myoview IV was injected at rest. CARDIAC STRESS: Initially, patient attempted walking on treadmill. He walked on Lloyd protocol for about 3 minutes, but unable to keep up on treadmill. Achieved maximum heart rate of 112, which was 82% of target heart rate, LENI positive 24%, 4.6 METS of workload and peak blood pressure 170/72 mmHg. The patient was switched to IV Lexiscan protocol. The patient received IV Lexiscan as per protocol under the supervision of an attending staff. The patient remained hemodynamically stable. During exercise and during Lexiscan stress test, baseline rhythm was AFib with left bundle branch block and secondary repolarization changes. During both type of stresses, no new convincing ischemic changes. Occasional PVCs. No chest pain. Had some shortness of breath. RAW DATA: Raw data there is increased subdiaphragmatic activity. GATED STUDY: Resting LV ejection fraction 51% and stress LV ejection 54% without any regional wall motion abnormalities. Left ventricle appears to be significantly dilated. Resting end-diastolic volume 302 mL. TID ratio 0.85, which is within normal limits. Lung/heart ratio 0.42, which is within normal limits. MYOCARDIAL PERFUSION SCAN: Stress supine, resting supine and stress prone images were compared to each other. Stress supine and resting supine images revealed large size, severely decreased perfusion of inferior wall extending into the inferior apex as well as a small size basal inferior wall and distal inferolateral wall defect. During stress prone images, overall inferior wall defect got significantly improved. The patient remained to have mildly decreased perfusion of basal inferolateral wall and distal inferolateral wall extending into the inferior apex. No reversible ischemia. CONCLUSION: 1. No obvious reversible ischemia. 2. Predominantly fixed basal inferolateral, distal inferolateral and inferior apical defect. On raw images, there is increased subdiaphragmatic activity and gut shadow seen. The patient had dilated LV with resting end-diastolic volume 302 mL with resting LV ejection fraction 51% and stress LV ejection 54%. Poor exercise tolerance. 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 No obvious ischemia or infarction in the LAD territory. Basal inferolateral, distal inferolateral and inferior apical defect could be due to persistent tissue attenuation artifact versus nontransmural AR. Correlate clinically. Demetrius Samuels - BONNIE/simón/RUSTAM doc#: [id number]/job#: [id number] dd: 02/05/2025 17:25:00 dt: 02/05/2025 18:01:00 DICTATING MD/COPIES TO: Aries Parkinson MD COPIES MNE: BRITNEY;
== END ==
LOC: NUCM 14:51
PROVIDERS: PCP Family Medicine; Referring Provider Family Medicine; Visit Provider Family Medicine
DX: I11.0 Hypertensive heart disease with heart failure (principal); I50.22 Chronic systolic (congestive) heart failure; I48.20 Chronic atrial fibrillation, unspecified; E78.5 Hyperlipidemia, unspecified; I25.10 Atherosclerotic heart disease of native coronary artery without angina pectoris; Z95.1 Presence of aortocoronary bypass graft
CPT/HCPCS: 78452; 93017; A9502; J2785